=== PATIENT | male | born 1965 | race Caucasian/White ===

== ENCOUNTER 2019-06-01 12:46 | Inpatient (IN) | payer OTHER ==
[2019-06-01] MEDS ORDERED: KETOROLAC TROMETHAMINE 60 MG/2 ML VIAL IM ONE (13:33)
[2019-06-01] MEDS ORDERED: LIDOCAINE 5% TOPICAL PATCH TP ONE (13:33)
[2019-06-01] MEDS ORDERED: DEXAMETHASONE LIQUID 0.5 MG/5 ML 240 ML BULK BOTTLE PO ONE (13:34)
[2019-06-01] MEDS ORDERED: DEXAMETHASONE SOD PHOSPHATE 10 MG/1 ML VIAL ONE (13:38)
[2019-06-01] MEDS ORDERED: LIDOCAINE 5% TOPICAL PATCH ONE (13:38)
[2019-06-01] MEDS ORDERED: KETOROLAC TROMETHAMINE 60 MG/2 ML VIAL ONE (13:38)
--- NOTE | 2019-06-01 14:34 | PDOC ---
History of Present Illness - General Chief Complaint: Back Pain Stated Complaint: LWR BACK PAIN Time Seen by Provider: 06/01/19 13:00 History Source: Patient Exam Limitations: No Limitations Past History - Travel Traveled outside of the country in the last 30 days: No Close contact w/someone who was outside of country & ill: No - Past Medical History Allergies/Adverse Reactions: Allergies Allergy/AdvReac Type Severity Reaction Status Date / Time Penicillins Allergy Verified 06/01/19 12:51 sulfamethoxazole Allergy Verified 06/01/19 12:51 [From Bactrim] trimethoprim [From Bactrim] Allergy Verified 06/01/19 12:51 COPD: No Diabetes: Yes (NIDDM) HTN: Yes Other medical history: chronic back pain - Suicide/Smoking/Psychosocial Hx Smoking History: Never smoked Review of Systems - Review of Systems Able to Perform ROS?: Yes Comments:: 06/01/19 14:31 CONSTITUTIONAL: Absent: fever, chills, diaphoresis, generalized weakness, malaise, loss of appetite GASTROINTESTINAL: Absent: abdominal pain, abdominal distension, nausea, vomiting, diarrhea, constipation, melena, hematochezia GENITOURINARY: Absent: dysuria, frequency, urgency, hesitancy, hematuria, flank pain, genital pain MUSCULOSKELETAL: Present: R sided low back pain Absent: arthralgia, joint swelling SKIN: Absent: rash, itching, pallor NEUROLOGIC: Absent: headache, focal weakness or paresthesias, dizziness, unsteady gait, seizure, mental status changes, bladder or bowel incontinence PSYCHIATRIC: Absent: anxiety, depression, suicidal or homicidal ideation, hallucinations. Is the patient limited Maltese proficient: No *Physical Exam - Vital Signs Last Vital Signs Temp Pulse Resp BP Pulse Ox 98.3 F 88 18 137/81 97 06/01/19 12:47 06/01/19 12:47 06/01/19 12:47 06/01/19 12:47 06/01/19 12:47 - Physical Exam Comments: 06/01/19 14:32 GENERAL: Well developed, well nourished. Awake and alert. No acute distress. HEENT: Normocephalic, atraumatic. PERRLA, EOMI. No conjunctival pallor. Sclera are non- icteric. Moist mucous membranes. Oropharynx is clear. NECK: Supple. Full ROM. No JVD. Carotid pulses 2+ and symmetric, without bruits. No thyromegaly. No lymphadenopathy. MUSCULOSKELETAL TTP of the R paraspinous muscles, L4-S1, with palpable knot consistent with muscle spasm. (+) straight leg raise on the R. R sided 3/5 strength, 5/5 on the L. Decreased sensation over the R medial calf. No bony deformities or tenderness. No CVA tenderness. EXTREMITIES: No cyanosis. No clubbing. No edema. No calf tenderness. SKIN: Warm and dry. Normal capillary refill. No rashes. No jaundice. NEUROLOGICAL: Alert, awake, appropriate. Cranial nerves 2-12 intact. No deficits to light touch and temperature in face, upper extremities and lower extremities. No motor deficits in the in face, upper extremities and lower extremities. Normoreflexic in the upper and lower extremities. Normal speech. Toes are down- going bilaterally. Gait is normal without ataxia. PSYCHIATRIC: Cooperative. Good eye contact. Appropriate mood and affect. ED Treatment Course - Medications Given in the ED: ED Medications Discontinued Medications Generic Name Dose Route Start Last Admin Trade Name Vangie PRN Reason Stop Dose Admin Dexamethasone 10 mg 06/01/19 13:34 06/01/19 13:51 Decadron Liquid - PO 06/01/19 13:35 10 mg ONCE ONE Administration Ketorolac Tromethamine 60 mg 06/01/19 13:33 06/01/19 13:49 Toradol Injection - IM 06/01/19 13:34 60 mg ONCE ONE Administration Lidocaine 1 patch 06/01/19 13:33 06/01/19 13:49 Lidoderm Patch - TP 06/01/19 13:34 1 patch ONCE ONE Administration Oxycodone/Acetaminophen 1 combo 06/01/19 13:34 06/01/19 13:51 Percocet 5/325 - PO 06/01/19 13:35 1 combo ONCE ONE Administration Medical Decision Making - Medical Decision Making 06/01/19 14:32 The patient is a 54-year-old male with past medical history of spinal stenosis/ chronic low back pain last MRI April 2019, who presents to the ER today with a flare of his low back pain. He states it has gotten worse over the last 2 days. He states this problem has been going on for the last 2 months and continually gotten worse. He saw his neurosurgeon on for the pain as well and given tramadol and Percocet to take as outpatient. He states that he is unable to get comfortable or walk short distances due to the pain. He states his right leg feels weak and that the leg feels numb and tingly medially. Denies fevers, chills, saddle anesthesia and bladder bowel incontinence. A/P: Low back pain -Pt with TTP of the R paraspinous muscles, L4-S1, with palpable knot consistent with muscle spasm. (+) straight leg raise on the R. R sided 3/5 strength, 5/5 on the L. Decreased sensation over the R medial calf. -No trauma, or fever. No saddle anesthesia or bladder/bowel incontinence. No CVA tenderness. -Pt with neurological changes; however, patient states that the weakness and numbness is not new. -Toradol, Dexamethasone, percocet and lidocaine patch given without relief of symptoms -Tried contacted Dr. Loyola, pt's neurosurgeon. Number is currently not working -Pt to be transferred to the main ED at this time. Pt still with significant pain despite treatment. -Case discussed with Dr. Guadalupe and NAHUN Ordonez. Pt to go to a hallway bed. *DC/Admit/Observation/Transfer Diagnosis at time of Disposition: Low back pain Qualifiers: Chronicity: acute Back pain laterality: right Sciatica presence: with sciatica Sciatica laterality: sciatica of right side Qualified Code(s): M54.41 - Lumbago with sciatica, right side - Referrals - Patient Instructions - Post Discharge Activity
--- NOTE | 2019-06-01 15:30 | PN ---
Progress Note (short form) - Note Progress Note: 54M w/known history of lumbar intervertebral disc prolapse with associated stenosis, spondylotic radiculopathy & neurogenic claudication now p/w acutely worsened, intractable low back pain and RLE radiculopathy. Pt. seen in outpatient setting last week. Planned conservative, non-surgical management to palliate symptomatology while patient attempts dietary modifications in effort to lose weight. According to ED staff, pt. presented to ED today w/acutely worsened low back pain and RLE radiculopathy, minimal capacity to ambulate, and inability to attend to ADL's. Pt. received Toradol, Dexamethasone, Percocet and topical lidocaine patch w/ little improvement of symptoms; unfit to go home. -Admit patient to my service. -Will re-assess tomorrow; If symptoms aren't improving, will discuss option of surgical intervention. -f/u pre-op labs: CBC, Chem 20, Coags (PT/PTT/INR), T&S x 2, UA. -f/u CXR, EKG. -Pain control: Hold NSAID's, steroids. -DVT PPx: -Mechanical only: DARCY's, SCD's. -WBAT B/L LE. -Care per medical hospitalist: Dr. Bernal. -NPO, IVF at midnight. -Will follow. -Plan discussed w/June Riley PA-C (ED team). Allan Saunders MD (Orthopaedic Surgery).
[2019-06-01] MEDS ORDERED: ONDANSETRON 4 MG/2 ML VIAL IVPUSH PRN (15:52)
[2019-06-01] MEDS ORDERED: oxyCODONE HCL 5 MG TABLET PO PRN (15:52)
--- NOTE | 2019-06-01 16:30 | PDOC ---
History of Present Illness - General Chief Complaint: Back Pain Stated Complaint: LWR BACK PAIN Time Seen by Provider: 06/01/19 13:00 History Source: Patient Exam Limitations: No Limitations - History of Present Illness Initial Comments: 06/01/19 16:53 54yo M with PMH of NIDDM, HTN presenting to ED with complaints of worsening lower back pain. Pt was originally seen in fast track and sent back to the main ed. Patient states that he has had back pain for the past 8m or so but for the past few months it has been getting worse. He endorses electric like pain shooting down his R leg associated with paresthesia in the R foot and difficulty walking. He has pain whether he is sitting, standing or walking but feels as if his R leg is weaker now. He was seen at [facility] for the back pain and MRI done 05/07/19 showed moderate stenosis at the L4/L5 outlet due to disc bulge. Denies injury, headache, neck pain, upper extremity weakness, abdominal pain, n/v/d, chest pain, sob, swelling, rash, syncope. He was being managed outpatient with pain medications and steroid injections but he states the pain returns and is getting worse. He saw Dr. Saunders last and was advised to come to the ED for possible surgery tomorrow. PMD: PMH: see hpi PSH: none Meds: see med rec Allergies: PCN, Bactrim Past History - Past Medical History Allergies/Adverse Reactions: Allergies Allergy/AdvReac Type Severity Reaction Status Date / Time Penicillins Allergy Verified 06/01/19 12:51 sulfamethoxazole Allergy Verified 06/01/19 12:51 [From Bactrim] trimethoprim [From Bactrim] Allergy Verified 06/01/19 12:51 Home Medications: Ambulatory Orders Amlodipine Besylate 10 mg PO HS 06/01/19 Enalapril Maleate [Vasotec -] 10 mg PO BID 06/01/19 Enalapril Maleate [Vasotec] 10 mg PO 06/01/19 Gabapentin 800 mg PO TID 06/01/19 Metformin HCl [Glucophage] 1,000 mg PO BID 06/01/19 Oxycodone HCl 5 mg PO TID PRN 06/01/19 Tramadol HCl 100 mg PO TID 06/01/19 COPD: No Diabetes: Yes (NIDDM) HTN: Yes Other medical history: chronic back pain - Suicide/Smoking/Psychosocial Hx Smoking History: Never smoked Review of Systems - Review of Systems Is the patient limited Korean proficient: No Constitutional: No: Symptoms Reported HEENTM: No: Symptoms Reported Respiratory: No: Symptoms reported Cardiac (ROS): No: Symptoms Reported ABD/GI: No: Symptoms Reported : No: Symptoms Reported Musculoskeletal: Yes: See HPI Integumentary: No: Symptoms Reported Neurological: Yes: See HPI *Physical Exam - Vital Signs Last Vital Signs Temp Pulse Resp BP Pulse Ox 98.3 F 88 18 137/81 97 06/01/19 12:47 06/01/19 12:47 06/01/19 12:47 06/01/19 12:47 06/01/19 12:47 - Physical Exam General Appearance: Yes: Appropriately Dressed, Obese. No: Apparent Distress HEENT: positive: EOMI, [place], Normal ENT Inspection Neck: positive: Trachea midline, Supple Respiratory/Chest: positive: Lungs Clear, Normal Breath Sounds. negative: Crackles, Rales, Wheezing Cardiovascular: positive: Regular Rhythm, Regular Rate, S1, S2. negative: Edema , JVD, Murmur Vascular Pulses: Dorsalis-Pedis (R): 2+, Doralis-Pedis (L): 2+ Gastrointestinal/Abdominal: positive: Normal Bowel Sounds, Soft, Distended. negative: Tender, Guarding, Rebound, Tenderness Musculoskeletal: positive: Other (+SLR R leg). negative: CVA Tenderness, Vertebral Tenderness Extremity: positive: Normal Capillary Refill Integumentary: positive: Normal Color, Dry, Warm Neurologic: positive: primary school principal II-XII NML intact, Fully Oriented, Alert, Normal Mood/ Affect, Normal Response, Motor Strength 03/02 ED Treatment Course - LABORATORY CBC & Chemistry Diagram: 06/01/19 16:49 06/01/19 16:33 - RADIOLOGY Radiology Studies Ordered: Category Date Time Status CHEST X-RAY PORTABLE* [RAD] Stat Radiology 06/01/19 15:40 Taken - Medications Given in the ED: ED Medications Discontinued Medications Generic Name Dose Route Start Last Admin Trade Name Freq PRN Reason Stop Dose Admin Dexamethasone 10 mg 06/01/19 13:34 06/01/19 13:51 Decadron Liquid - PO 06/01/19 13:35 10 mg ONCE ONE Administration Ketorolac Tromethamine 60 mg 06/01/19 13:33 06/01/19 13:49 Toradol Injection - IM 06/01/19 13:34 60 mg ONCE ONE Administration Lidocaine 1 patch 06/01/19 13:33 06/01/19 13:49 Lidoderm Patch - TP 06/01/19 13:34 1 patch ONCE ONE Administration Oxycodone/Acetaminophen 1 combo 06/01/19 13:34 06/01/19 13:51 Percocet 5/325 - PO 06/01/19 13:35 1 combo ONCE ONE Administration Medical Decision Making - Medical Decision Making 06/02/19 00:22 54yo M with PMH of NIDDM, HTN presenting to ED with complaints of worsening lower back pain. Pt was originally seen in fast track and sent back to the main ed. Patient states that he has had back pain for the past 8m or so but for the past few months it has been getting worse. He endorses electric like pain shooting down his R leg associated with paresthesia in the R foot and difficulty walking. He has pain whether he is sitting, standing or walking but feels as if his R leg is weaker now. He was seen at [facility] for the back pain and MRI done 05/07/19 showed moderate stenosis at the L4/L5 outlet due to disc bulge. Denies injury, headache, neck pain, upper extremity weakness, abdominal pain, n/v/d, chest pain, sob, swelling, rash, syncope. He was being managed outpatient with pain medications and steroid injections but he states the pain returns and is getting worse. He saw Dr. Saunders last and was advised to come to the ED for possible surgery tomorrow. Vitals wnl PE: normal sensation, reduced rom of R leg with +SLR, no vertebral tendernes. Pt has lower back pain with sciatica due to disc bulge. Has seen Dr Saunders and Dr Saunders will admit pt for possible surgery tomorrow. will obtain pre op labs and admit to his service. pt does not have any other complaints. *DC/Admit/Observation/Transfer Diagnosis at time of Disposition: Low back pain Qualifiers: Chronicity: acute Back pain laterality: right Sciatica presence: with sciatica Sciatica laterality: sciatica of right side Qualified Code(s): M54.41 - Lumbago with sciatica, right side - Referrals - Patient Instructions - Post Discharge Activity
[2019-06-01] MEDS: LACTATED RINGERS SOLUTION 1,000 ML IV SCH (16:34)
[2019-06-01 17:00] LABS: BASO % 0.5 % (0-2.0); EOS % 0.2 % (0-4.5); HEMATOCRIT 43.3 % (35.4-49); HEMOGLOBIN 14.1 GM/dL (11.7-16.9); LYMPH % 8.3 % (8-40); MCH 28.4 pg (25.7-33.7); MCHC 32.5 g/dl (32.0-35.9); MEAN CELL VOLUME 87.3 fl (80-96); MEAN PLT VOLUME 7.1 fl (7.5-11.1); MONO % 1.4 % (3.8-10.2); NEUT % 89.6 % (42.8-82.8); PLATELET COUNT 449 K/MM3 (134-434); RBC 4.96 M/mm3 (4.00-5.60); RDW 13.2 % (11.9-15.9); WHITE BLOOD COUNT 15.3 K/mm3 (4.0-10.0)
[2019-06-01 17:20] LABS: INR 1.07 (0.83-1.09); PROTHROMBIN TIME (PATIENT) 12.6 SEC (9.7-13.0)
[2019-06-01 17:23] LABS: ACTIVATED PTT 34.5 SECONDS (25.2-36.5)
[2019-06-01 17:24] LABS: ALBUMIN 3.9 g/dl (3.4-5.0); BILIRUBIN,TOTAL 0.2 mg/dL (0.2-1); BLOOD UREA NITROGEN 13.7 mg/dL (7-18); CALCIUM 9.4 mg/dL (8.5-10.1); CREATININE 0.8 mg/dL (0.55-1.3); POTASSIUM 5.1 mmol/L (3.5-5.1); TOT PROT 7.8 g/dl (6.4-8.2)
[2019-06-01 17:33] LABS: PH,URINE 6.5 (5.0-8.0); URINE APPEARANCE CLEAR; URINE BILIRUBIN NEGATIVE (NEGATIVE); URINE COLOR YELLOW; URINE GLUCOSE (UA) NEGATIVE (NEGATIVE); URINE KETONE NEGATIVE (NEGATIVE); URINE LEUK ESTERASE NEGATIVE (NEGATIVE); URINE NITRITE NEGATIVE (NEGATIVE); URINE PROTEIN NEGATIVE (NEGATIVE); URINE UROBILINOGEN 0.2 mg/dL (0.2-1.0)
[2019-06-01] MEDS: oxyCODONE HCL 5 MG TABLET PO PRN (18:05)
--- NOTE | 2019-06-01 18:33 | CONSULT ---
Consult Consult Specialty:: IM Reason for Consultation:: pre-op clearance. post-op medical management - History Source History Provided By: Patient, Family Member Limitations to Obtaining History: No Limitations - Past Medical History Cardio/Vascular: Yes: HTN Endocrine: Yes: Diabetes Mellitus - Smoking History Smoking history: Never smoked Home Medications - Allergies Allergies/Adverse Reactions: Allergies Allergy/AdvReac Type Severity Reaction Status Date / Time Penicillins Allergy Verified 06/01/19 12:51 sulfamethoxazole Allergy Verified 06/01/19 12:51 [From Bactrim] trimethoprim [From Bactrim] Allergy Verified 06/01/19 12:51 - Home Medications Home Medications: Ambulatory Orders Amlodipine Besylate 10 mg PO HS 06/01/19 Enalapril Maleate [Vasotec -] 10 mg PO BID 06/01/19 Enalapril Maleate [Vasotec] 10 mg PO 06/01/19 Gabapentin 800 mg PO TID 06/01/19 Metformin HCl [Glucophage] 1,000 mg PO BID 06/01/19 Oxycodone HCl 5 mg PO TID PRN 06/01/19 Tramadol HCl 100 mg PO TID 06/01/19 Family Disease History - Family Disease History Family History: Unremarkable Review of Systems - Review of Systems Constitutional: reports: Weakness Eyes: reports: No Symptoms HENT: reports: No Symptoms Neck: reports: No Symptoms Cardiovascular: reports: No Symptoms Respiratory: reports: No Symptoms Gastrointestinal: reports: No Symptoms Genitourinary: reports: No Symptoms Musculoskeletal: reports: Back Pain Integumentary: reports: No Symptoms Neurological: reports: No Symptoms Endocrine: reports: No Symptoms Hematology/Lymphatic: reports: No Symptoms Psychiatric: reports: No Symptoms Physical Exam Vital Signs: Vital Signs Temperature 98.3 F 06/01/19 17:12 Pulse Rate 73 06/01/19 17:12 Respiratory Rate 18 06/01/19 12:47 Blood Pressure 135/78 06/01/19 17:12 O2 Sat by Pulse Oximetry (%) 94 L 06/01/19 17:12 Constitutional: Yes: Well Nourished, No Distress, Calm Eyes: Yes: WNL HENT: Yes: WNL Neck: Yes: WNL Cardiovascular: Yes: WNL Respiratory: Yes: WNL Gastrointestinal: Yes: Abdomen, Obese, Distention Renal/: Yes: WNL Musculoskeletal: Yes: Back Pain Extremities: Yes: WNL Edema: No Peripheral Pulses WNL: Yes Neurological: Yes: WNL ...Motor Strength: WNL Psychiatric: Yes: WNL Labs: CBC, BMP 06/01/19 16:49 06/01/19 16:33 Assessment/Plan -54-year-old male with past medical history of spinal stenosis/chronic low back pain last MRI April 2019, came in with a flare of his low back pain which got a lot worse over the last 2 days. He states this problem has been going on for the last 8 months and continually gotten worse. He saw his othopedist on 05/29/19 for similar symptoms and was prescribed tramadol and percocet with minimal relief of his symptoms. He reports that he is unable to ambulate even a short distance due to the pain. describes pain as 10/10, radiating down to his legs, and interferes with his quality of life. denies chest pain, palpitations, nausea, vomiting, diarrhea. will go to OR tomorrow with Dr Saunders. cont pain management. can have dinner. NPO past midnight. -uncontrolled type 2 DM: RISS. hold PO meds till PO food intake is resumed post- op -HTN: took his meds for the day. will reassess post-op -GI, DVT prophylaxis. -leucocytosis, reactive thrmbocytosis: afebrile. etiology unclear. will monitor. will get IV antibiotics babak-operatively. -morbid obesity: weight loss and healthier lifestyle advised. -assessment and plan discussed at length with pt and at bedside. case discussed with Dr Saunders labs and meds reviewed Pt is cleared with moderate CV risk for OR calls answered throughout the day. 60 min
[2019-06-01] MEDS: LIDOCAINE PATCH REMOVAL MC SCH (21:17)
[2019-06-01] MEDS: INSULIN SLIDING SCALE (NOVOLOG) 1 VIAL SQ SCH (21:18)
[2019-06-02] MEDS: oxyCODONE HCL 5 MG TABLET PO PRN ×2 (00:38→08:46)
[2019-06-02] MEDS: LACTATED RINGERS SOLUTION 1,000 ML IV SCH ×3 (04:18→22:00)
[2019-06-02] MEDS: INSULIN SLIDING SCALE (NOVOLOG) 1 VIAL SQ SCH ×3 (06:13→16:58)
[2019-06-02 09:25] LABS: BASO % 0.9 % (0-2.0); EOS % 0.1 % (0-4.5); HEMATOCRIT 40.9 % (35.4-49); HEMOGLOBIN 13.5 GM/dL (11.7-16.9); LYMPH % 11.2 % (8-40); MCH 28.5 pg (25.7-33.7); MCHC 32.9 g/dl (32.0-35.9); MEAN CELL VOLUME 86.5 fl (80-96); MEAN PLT VOLUME 7.5 fl (7.5-11.1); MONO % 5.2 % (3.8-10.2); NEUT % 82.6 % (42.8-82.8); PLATELET COUNT 417 K/MM3 (134-434); RBC 4.74 M/mm3 (4.00-5.60); RDW 12.8 % (11.9-15.9); WHITE BLOOD COUNT 17.5 K/mm3 (4.0-10.0)
[2019-06-02] MEDS ORDERED: MORPHINE SULFATE 2 MG/ML VIAL IVPUSH ONE (13:15)
[2019-06-02] MEDS ORDERED: BUPIVACAINE LIPOSOME/PF (EXPAREL) 266 MG/20 ML VIAL ONE ×2 (16:54→17:03)
[2019-06-02] MEDS ORDERED: BUPIVACAINE HCL/PF 0.25% (2.5MG/ML) 10 ML VIAL ONE (16:54)
[2019-06-02] MEDS ORDERED: THROMBIN (BOVINE) 5,000 UNIT VIAL TP ONE (16:55)
[2019-06-02] MEDS ORDERED: BUPIVACAINE HCL/PF 0.5% (5MG/ML) 10 ML VIAL ONE (17:03)
[2019-06-02] MEDS ORDERED: fentaNYL CITRATE 250 MCG/5 ML VIAL ONE (17:06)
[2019-06-02] MEDS ORDERED: MIDAZOLAM HCL 2 MG/2 ML SINGLE DOSE VIAL ONE ×2 (17:07)
[2019-06-02] MEDS ORDERED: PROPOFOL 20 ML ONE ×4 (17:10→17:17)
--- NOTE | 2019-06-02 17:13 | PN ---
Progress Note, Physician Chief Complaint: back pain, intractable - Current Medication List Current Medications: Active Medications Lactated Ringer's (Lactated Ringers Solution) 1,000 mls @ 125 mls/hr IV [facility] Last Admin: 06/02/19 17:06 Dose: Not Given Insulin Aspart (Novolog Vial Sliding Scale -) 1 vial SQ [facility]; Protocol Last Admin: 06/02/19 16:58 Dose: Not Given Miscellaneous (Lidoderm Patch Removal) 1 each MC DAILY@2200 [place] Last Admin: 06/01/19 21:17 Dose: 1 each Ondansetron HCl (Zofran Injection) 4 mg IVPUSH Q6H PRN PRN Reason: NAUSEA AND/OR VOMITING Oxycodone HCl (Roxicodone -) 10 mg PO Q6H PRN PRN Reason: PAIN LEVEL 6-10 Last Admin: 06/02/19 08:46 Dose: 10 mg Oxycodone HCl (Roxicodone -) 5 mg PO Q4H PRN PRN Reason: PAIN LEVEL 1-5 Last Admin: 06/01/19 22:39 Dose: 5 mg - Objective Vital Signs: Vital Signs Temperature 98.2 F 06/02/19 15:00 Pulse Rate 79 06/02/19 15:00 Respiratory Rate 20 06/02/19 15:00 Blood Pressure 142/85 06/02/19 15:00 O2 Sat by Pulse Oximetry (%) 98 06/02/19 09:00 Constitutional: Yes: No Distress, Anxious Eyes: Yes: WNL HENT: Yes: WNL Neck: Yes: WNL Cardiovascular: Yes: WNL Respiratory: Yes: WNL Gastrointestinal: Yes: WNL Genitourinary: Yes: WNL Musculoskeletal: Yes: Back Pain Extremities: Yes: WNL Edema: No Peripheral Pulses WNL: Yes Integumentary: Yes: WNL Neurological: Yes: WNL Psychiatric: Yes: WNL Labs: CBC, BMP 06/02/19 08:30 06/01/19 16:33 INR, PTT INR 1.07 (0.83-1.09) 06/01/19 16:49 Assessment/Plan -54-year-old male with past medical history of spinal stenosis/chronic low back pain last MRI April 2019, came in with a flare of his low back pain which got a lot worse over the last 2 days. He states this problem has been going on for the last 8 months and continually gotten worse. He saw his othopedist on 05/29/19 for similar symptoms and was prescribed tramadol and percocet with minimal relief of his symptoms. He reports that he is unable to ambulate even a short distance due to the pain. describes pain as 10/10, radiating down to his legs, and interferes with his quality of life. denies chest pain, palpitations, nausea, vomiting, diarrhea. will go to OR today with Dr Saunders. cont pain management. NPO. -GI, DVT prophylaxis. -leucocytosis, reactive thrmbocytosis: afebrile. etiology unclear. will monitor. will get IV antibiotics babak-operatively. family and pt comfortable with surgery given current parameters. they do not with to be consulted by ID at this time for fear of postponement of surgery. -morbid obesity: weight loss and healthier lifestyle advised. -assessment and plan discussed at length with pt and at bedside. case discussed with Dr Saunders labs and meds reviewed Pt is cleared with moderate CV risk for OR calls answered throughout the day. 45 min
[2019-06-02] MEDS ORDERED: ROCURONIUM BROMIDE 50 MG/5 ML SYRINGE ONE ×2 (17:15→19:06)
[2019-06-02] MEDS ORDERED: SUCCINYLCHOLINE CHLORIDE 200 MG/10 ML SYRINGE ONE (17:15)
--- NOTE | 2019-06-02 17:15 | PN ---
Progress Note (short form) - Note Progress Note: 54M w/known history of L4-L5 intervertebral disc prolapse with associated stenosis, spondylotic radiculopathy & neurogenic claudication now p/w acutely worsened, intractable low back pain, RLE radiculopathy, and progressive weakness. Pain well controlled. No acute events overnight. Pt. denies overnight history of headaches, chest pain, shortness of breath, nausea, vomiting, chills, & sweats. (+) Voiding; (+) Flatus; (-) BM. NPO, IVF. Unable to walk due to severe low back pain and RLE radiculopathy. All labs and vitals reviewed. PE: AAO x 3, NAD. L-Spine: Skin C/D/I. RLE M: L2-L4, S1 5/5; L5 4/5. RLE S: L2-L4 2/2; L5-S1 1/2. LLE M: L2-S1 5/5. LLE S: L2-S1 2/2. 54F doing well s/p L4-S1 laminectomies; L3 partial laminectomy; L4-L5, & L5-S1 PLIF, L4-S1 PISF POD #10. -NPO, IVF. -Risks, benefits, and alternatives of non-surgical VS surgical management were discussed with and understood by the patient with his family. The patient wishes to pursue a surgical solution to his symptomatology and lumbar spine pathology. -A long conversation was held with the patient and his family, in the presence of Dr. Bernal (medical hospitalist) about his elevated WBC (most likely secondary to IV Decadron received in the ED), neutrophil left shift, and other lab derangements. Benefits of surgical intervention outweigh medical risks. The patient and his family wish to proceed with surgical intervention. -H&P reviewed. -Will proceed with L4-L5 PLIF & posterolateral instrumented fusion. Allan Saunders MD (Orthopaedic Surgery).
[2019-06-02] MEDS ORDERED: ONDANSETRON 4 MG/2 ML VIAL ONE ×2 (17:17→20:57)
[2019-06-02] MEDS ORDERED: KETOROLAC TROMETHAMINE 30 MG/1 ML VIAL ONE (17:17)
[2019-06-02] MEDS ORDERED: DEXAMETHASONE SOD PHOSPHATE 4 MG/1 ML VIAL ONE ×2 (17:17→17:18)
[2019-06-02] MEDS ORDERED: LIDOCAINE HCL/PF 2% SDV 5ML VIAL ONE ×2 (17:17→18:46)
--- NOTE | 2019-06-02 17:30 | PN ---
Progress Note (short form) - Note Progress Note: 54M w/known history of L4-L5 intervertebral disc prolapse with associated stenosis, spondylotic radiculopathy & neurogenic claudication now p/w acutely worsened, intractable low back pain, RLE radiculopathy, and progressive weakness. Pain well controlled. No acute events overnight. Pt. denies overnight history of headaches, chest pain, shortness of breath, nausea, vomiting, chills, & sweats. (+) Voiding; (+) Flatus; (-) BM. NPO, IVF. Unable to walk due to severe low back pain and RLE radiculopathy. All labs and vitals reviewed. PE: AAO x 3, NAD. L-Spine: Skin C/D/I. RLE M: L2-L4, S1 5/5; L5 4/5. RLE S: L2-L4 2/2; L5-S1 1/2. LLE M: L2-S1 5/5. LLE S: L2-S1 2/2. 54M p/w L4-L5 intervertebral disc prolapse with associated stenosis, spondylotic radiculopathy & neurogenic claudication now p/w acutely worsened, intractable low back pain, RLE radiculopathy, and progressive weakness. -NPO, IVF. -Risks, benefits, and alternatives of non-surgical VS surgical management were discussed with and understood by the patient with his family. The patient wishes to pursue a surgical solution to his symptomatology and lumbar spine pathology. -A long conversation was held with the patient and his family, in the presence of Dr. Bernal (medical hospitalist) about his elevated WBC (most likely secondary to IV Decadron received in the ED), neutrophil left shift, and other lab derangements. Benefits of surgical intervention outweigh medical risks. The patient and his family wish to proceed with surgical intervention. -H&P reviewed. -Will proceed with L4-L5 PLIF & posterolateral instrumented fusion. Allan Saunders MD (Orthopaedic Surgery).
[2019-06-02] MEDS ORDERED: VANCOMYCIN 1,000 MG VIAL (RESTRICTED TO ID ONLY) ONE (18:16)
[2019-06-02] MEDS ORDERED: SODIUM CHLORIDE 0.9% P/F 10 ML VIAL IJ ONE ×2 (18:16→18:17)
[2019-06-02] MEDS ORDERED: TRANEXAMIC ACID 1000 MG/10 ML VIAL ONE ×2 (18:16→21:04)
[2019-06-02] MEDS ORDERED: ceFAZolin SODIUM 1 GM VIAL IVPB ONE ×2 (18:19→21:15)
[2019-06-02] MEDS ORDERED: VANCOMYCIN 1,000 MG VIAL (RESTRICTED TO ID ONLY) IVPB ONE (18:22)
[2019-06-02] MEDS ORDERED: METOPROLOL TARTRATE 5 MG/5 ML VIAL ONE (18:33)
[2019-06-02] MEDS ORDERED: hydrALAZINE HCL 20 MG/ML VIAL ONE (18:46)
[2019-06-02] MEDS ORDERED: KETAMINE HCL 200 MG/20 ML VIAL ONE (19:04)
[2019-06-02] MEDS ORDERED: HEPARIN NA (PORCINE) 5,000 UNITS/ML 1ML VIAL ONE (19:05)
[2019-06-02] MEDS ORDERED: ceFAZolin SODIUM 1 GM VIAL ONE (21:05)
[2019-06-02] MEDS ORDERED: NEOSTIGMINE METHYLSULFATE 0.5 MG/1 ML - 10 ML MDV ONE (21:08)
[2019-06-02] MEDS ORDERED: GLYCOPYRROLATE 0.2 MG/1 ML VIAL ONE (21:08)
[2019-06-02] MEDS ORDERED: BENZOIN TINCTURE SWABSTICK TP ONE (21:26)
[2019-06-02] MEDS ORDERED: HYDROmorphone HCl 2 MG/ML VIAL ONE (21:40)
--- NOTE | 2019-06-02 21:46 | PN ---
Progress Note (short form) - Note Progress Note: 54M POD #0 s/p: 1. L4 bilateral laminectomies & inferior facetectomies 2. L5 superior facetectomies 2. L4-L5 posterior instrumentation 3. L4-L5 discectomy 4. L4-L5 posterior lumbar interbody fusion 5. L4-L5 insertion biomechanical device 6. L4-L5 posterolateral arthrodesis 7. Bone allograft 8. Bone autograft 9. Bone marrow aspiration & concentrate autograft 10. Complex wound closure (15cm) 11. Durotomy repair -Admit to ICU post-op. -Pain control: patient received pre-op TLIP block w/Exparel; OK to use PRODUCT SUPPORT MANAGER if needed; transition to oral analgesia post-op; NO NSAID's. -DVT PPx: -Mechanical only: DARCY's, SCD's. -Chemical: None. -Incentive spirometry q15 min. -NPO until flatus. -Stephens care; d/c when ambulating. -Post-op Ancef q6h x 3 doses; Vancomycin 1g 12 hrs. post-op. -PT/OT/Rehab, OOB. -WBAT B/L LE. -No bending, lifting (>5 lbs), or twisting for 9-12 months. -Care per ICU & medical hospitalist Dr. Bernal. -Discharge planning: [facility]; call for appointment; . -Will follow. Allan Saunders MD (Orthopaedic Surgery).
--- NOTE | 2019-06-02 21:46 | OP ---
Operative Note - Note: Operative Date: 06/02/19 Pre-Operative Diagnosis: 1. L4-L5 disc prolapse with RLE radiculopathy & weakness. 2. Segmental instability L4-L5. Severity of illness: 4. Operation: 1. L4 bilateral laminectomies & inferior facetectomies. 2. L5 superior facetectomies. 2. L4-L5 posterior instrumentation. 3. L4-L5 discectomy. 4. L4-L5 posterior lumbar interbody fusion. 5. L4-L5 insertion biomechanical device. 6. L4-L5 posterolateral arthrodesis. 7. Bone allograft. 8. Bone autograft. 9. Bone marrow aspiration & concentrate autograft. 10. Complex wound closure (15cm). 11. Durotomy repair Findings: Sequestrated L4-L5 disc fragment with large disc prolapse. Implants: Cage: RTI Fortilink Tetrafuse [id number]. Screws: Precision Spine 6.5x40mm x 4. Rods: 35mm x 2. Post-Operative Diagnosis: Same as Pre-op Surgeon: Allan Saunders Superintendent Sales: Zane Saunders Anesthesiologist/CAREER TECHNICAL COUNSELOR: Raman Watson Anesthesia: General, Local (TLIP) Specimens Removed: L4-L5 disc Estimated Blood Loss (mls): 250 Fluid Volume Replaced (mls): 1,300 Operative Report Dictated: Yes
[2019-06-02] MEDS ORDERED: ONDANSETRON 4 MG/2 ML VIAL IVPUSH PRN ×2 (21:52→22:09)
[2019-06-02] MEDS ORDERED: ACETAMINOPHEN 1000 MG/100 ML VIAL (NON FORMULARY) IVPB SCH (22:00)
[2019-06-02] MEDS ORDERED: ENALAPRIL MALEATE 10 MG TABLET (FP) PO SCH (22:00)
[2019-06-02] MEDS ORDERED: CHLORHEXIDINE GLUCONATE 4% CLEANSER FOR DECOLONIZATION TP SCH (22:00)
[2019-06-02] MEDS ORDERED: LACTATED RINGERS SOLUTION 1,000 ML IV SCH (22:00)
[2019-06-02] MEDS ORDERED: amLODIPine BESYLATE 10 MG TABLET (FP) PO SCH (22:00)
[2019-06-02] MEDS ORDERED: HYDROmorphone *PCA* 10MG/50ML DISP.SYRIN ONE (22:07)
[2019-06-02] MEDS: ACETAMINOPHEN 1000 MG/100 ML VIAL (NON FORMULARY) IVPB SCH (22:08)
[2019-06-02] MEDS ORDERED: ACETAMINOPHEN 1000 MG/100 ML VIAL (NON FORMULARY) IVPB ONE (22:08)
[2019-06-02] MEDS: HYDROmorphone *PCA* 10MG/50ML DISP.SYRIN PCA SCH (22:19)
[2019-06-02] MEDS ORDERED: PHENYLEPHRINE HCL 10 MG/1 ML SINGLE DOSE VIAL ONE (22:31)
[2019-06-02] MEDS ORDERED: PROMETHAZINE HCL 25 MG/1 ML VIAL IVPUSH PRN (22:36)
[2019-06-02] MEDS ORDERED: CEFAZOLIN 2 GM/D5W 2 GM/50 ML ML IVPB SCH (22:45)
[2019-06-03] MEDS: MUPIROCIN 2% TOPICAL OINTMENT FOR DECOLONIZATION NS SCH ×2 (00:07→09:04)
[2019-06-03] MEDS: LACTATED RINGERS SOLUTION 1,000 ML IV SCH ×2 (00:08→17:09)
--- NOTE | 2019-06-03 00:10 | CONSULT ---
Consultation: REQUESTING PROVIDER: Dr. Allan Saunders CONSULT REQUEST: We have been asked to medically evaluate this patient for continued ICU monitoring s/p spinal surgery. HISTORY OF PRESENT ILLNESS: Raghavendra Reddy is a 54 year old male with a past medical history of lumbar intervertebral disc prolapse with associated stenosis, spondylotic radiculopathy , neurogenic claudication, hypertension, DM, who presented to the ED after failing conservative management of his lumbar back pain. Patient had been getting toradol, dexamethasone, and percocet along with lifestyle changes (wt loss), however over the last 8 months had been progressively having more back pain and difficulty ambulating and completing his ADLs. Patient arrived in the ED, discussed options with Dr. Saunders and proceeded with surgery completed today. In the OR patient underwent L4 bilateral laminectomies & inferior facetectomies, L5 superior facetectomies, L4-L5 posterior instrumentation, L4- L5 discectomy, L4-L5 posterior lumbar interbody fusion, L4-L5 insertion biomechanical device, L4-L5 posterolateral arthrodesis, Bone allograft, Bone autograft, Bone marrow aspiration & concentrate autograft, Complex wound closure (15cm), and durotomy repair. Patient arrived in the ICU. States that he continues to have back pain and was asking about pain medication. 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 Denied chest pain, shortness of breath, abd pain, n/ v/c/d, dizziness, lightheadedness, fever, chills, numbness, tingling, weakness, visual changes. REVIEW OF SYSTEMS: CONSTITUTIONAL: Absent: fever, chills, diaphoresis, generalized weakness, malaise, loss of appetite, weight change HEENT: Absent: rhinorrhea, nasal congestion, throat pain, throat swelling, difficulty swallowing, mouth swelling, ear pain, eye pain, visual changes CARDIOVASCULAR: Absent: chest pain, syncope, palpitations, irregular heart rate, lightheadedness , peripheral edema RESPIRATORY: Absent: cough, shortness of breath, dyspnea with exertion, orthopnea, wheezing, stridor, hemoptysis GASTROINTESTINAL: Absent: abdominal pain, abdominal distension, nausea, vomiting, diarrhea, constipation, GENITOURINARY: Absent: dysuria, frequency, urgency, hesitancy, hematuria, flank pain, genital pain MUSCULOSKELETAL: back pain Absent: myalgia, arthralgia, joint swelling, SKIN: Absent: rash, itching, pallor HEMATOLOGIC/IMMUNOLOGIC: Absent: easy bleeding, easy bruising, lymphadenopathy, frequent infections ENDOCRINE: Absent: unexplained weight gain, unexplained weight loss, heat intolerance, cold intolerance NEUROLOGIC: Absent: headache, focal weakness or paresthesias, dizziness, unsteady gait, seizure, mental status changes, bladder or bowel incontinence PSYCHIATRIC: Absent: anxiety, depression, suicidal or homicidal ideation, hallucinations. PHYSICAL EXAMINATION Vital Signs - 24 hr 06/02/19 06/02/19 06/02/19 02:17 07:00 09:00 Temperature 98.5 F 97.9 F Pulse Rate 84 83 Respiratory 20 20 Rate Blood Pressure 132/77 129/83 O2 Sat by Pulse 98 Oximetry (%) 06/02/19 06/02/19 06/02/19 15:00 21:50 22:15 Temperature 98.2 F 98.2 F Pulse Rate 79 98 H 96 H Respiratory 20 18 18 Rate Blood Pressure 142/85 148/78 140/80 O2 Sat by Pulse 97 95 Oximetry (%) 06/02/19 06/02/19 06/02/19 22:19 22:30 22:45 Temperature Pulse Rate 96 H 95 H 92 H Respiratory 18 14 16 Rate Blood Pressure 140/80 136/75 144/70 O2 Sat by Pulse 95 95 94 L Oximetry (%) 06/02/19 06/02/19 06/02/19 23:00 23:15 23:30 Temperature Pulse Rate 86 86 85 Respiratory 18 18 19 Rate Blood Pressure 115/63 128/64 122/69 O2 Sat by Pulse 95 94 L 94 L Oximetry (%) GENERAL: Awake, alert, and fully oriented, in no acute distress. Complained of back pain. HEAD: Normal with no signs of trauma. EYES: Pupils equal, round and reactive to light, extraocular movements intact, sclera anicteric, conjunctiva clear. EARS, NOSE, THROAT: Oropharynx clear without exudates. Moist mucous membranes. NECK: Normal range of motion, supple without lymphadenopathy, JVD, or masses. LUNGS: Breath sounds equal, clear to auscultation bilaterally. No wheezes, and no crackles. No accessory muscle use. HEART: Regular rate and rhythm, normal S1 and S2 without murmur, rub. ABDOMEN: Soft, nontender, not distended, normoactive bowel sounds, no guarding, no rebound, no masses. MUSCULOSKELETAL: Normal range of motion at all joints. No bony deformities or tenderness. No CVA tenderness. UPPER EXTREMITIES: 2+ pulses, warm, well-perfused. No cyanosis. No clubbing. Cap refill <2 seconds. No peripheral edema. LOWER EXTREMITIES: 2+ pulses, warm, well-perfused. No calf tenderness. No peripheral edema. NEUROLOGICAL: Cranial nerves II-XII intact. Normal speech. 5/5 muscle strength throughout upper and lower extremities bilaterally. Reduced movement in hip flexion and extension secondary to pain from surgery. Sensation intact throughout. PSYCHIATRIC: Cooperative. Good eye contact. Appropriate mood and affect. SKIN: Warm, dry, normal turgor, no rashes or lesions noted. Laboratory Results - last 24 hr 06/02/19 06/02/19 06/02/19 06:10 08:30 08:30 WBC 17.5 H RBC 4.74 Hgb 13.5 Hct 40.9 MCV 86.5 MCH 28.5 MCHC 32.9 RDW 12.8 Plt Count 417 MPV 7.5 Absolute Neuts (auto) 14.4 H Neutrophils % 82.6 Lymphocytes % 11.2 D Monocytes % 5.2 D Eosinophils % 0.1 Basophils % 0.9 Nucleated RBC % 0 POC Glucometer 172 Blood Type A POSITIVE Antibody Screen Negative 06/02/19 11:51 WBC RBC Hgb Hct MCV MCH MCHC RDW Plt Count MPV Absolute Neuts (auto) Neutrophils % Lymphocytes % Monocytes % Eosinophils % Basophils % Nucleated RBC % POC Glucometer 124 Blood Type Antibody Screen Active Medications Generic Name Dose Route Start Last Admin Trade Name Freq PRN Reason Stop Dose Admin Acetaminophen 1,000 mg 06/03/19 06:00 06/02/19 22:08 Ofirmev Injection - IVPB 06/03/19 14:01 1,000 mg Q8H SALINA Administration Amlodipine Besylate 10 mg 06/03/19 22:00 Norvasc - PO HS SALINA Chlorhexidine Gluconate 1 applic 06/02/19 22:00 Hibiclens For Decolonization - TP HS SALINA Enalapril Maleate 10 mg 06/03/19 10:00 Vasotec - PO BID SALINA Hydromorphone HCl 10 mg 06/02/19 22:15 06/02/19 22:19 Hydromorphone 10 Mg/50 Ml-Ns BELLING MACHINE OPERATOR 06/09/19 22:10 10 mg BELLING MACHINE OPERATOR SALINA Administration Protocol Lactated Ringer's 1,000 mls @ 75 mls/hr 06/02/19 22:15 Lactated Ringers Solution IV ASDIR SALINA Vancomycin HCl 1,000 mg in 250 mls @ 166.667 mls/hr 06/03/19 06:00 Vancomycin (Pre-Docked) IVPB 06/03/19 07:29 ONCE ONE Protocol Cefazolin Sodium/Dextrose 2 gm in 50 mls @ 100 mls/hr 06/03/19 02:00 Ancef 2 Gm Premixed Ivpb - IVPB 06/03/19 14:29 Q6H SALINA Insulin Aspart 1 vial 06/03/19 07:00 Novolog Vial Sliding Scale - SQ ACHS SALINA Protocol Metformin HCl 1,000 mg 06/03/19 07:00 Glucophage - PO BIDAC SALINA Mupirocin 1 applic 06/02/19 22:00 Bactroban Ointment (For Decolonization) - NS 06/07/19 21:59 BID SALINA Promethazine HCl 12.5 mg 06/02/19 22:36 Phenergan Injection - IVPUSH Q6H PRN NAUSEA AND/OR VOMITING ASSESSMENT/PLAN: Raghavendra Reddy is a 54 year old male with a past medical history of lumbar intervertebral disc prolapse with associated stenosis, spondylotic radiculopathy , neurogenic claudication, hypertension, DM admitted to the ICU for continued monitoring s/p orthopedic back surgery with Dr. Saunders. NEUROLOGIC - alert and oriented - neurochecks q shift - pain management as per anesthesia - BELLING MACHINE OPERATOR pump - IV Tylenol - NO NSAIDS CARDIOLOGY - continue home amlodipine 10mg daily - continue home enalapril 10mg bid RESPIRATORY - NC as needed - encourage incentive spirometry RENAL - no acute issues GASTROINTESTINAL - promethazine 12.5mg q6h IV push as needed for nausea GENITOURINARY - byrnes in - may dc when starting to ambulate INFECTIOUS DISEASE - continue ancef x3 - continue vancomycin x1 - elevated WBC, likely reactive - afebrile ENDOCRINE - continue home metformin 1000mg bid - BGM ACHS - ISS HEMATOLOGY - continue to monitor Hgb counts s/p surgery - 250cc EBL - 1300 fluid replaced in OR - morning labs to trend counts - elevated WBC, likely reactive, continue to monitor MUSCULOSKELETAL - continue to monitor neuro exam - PT/OT/rehab - early ambulation - no bending/lifting/twisting for 9 months - f/u outpatient with Dr. Saunders s/p discharge PSYCHIATRY - no acute issues F/E/N - LR at 75cc - continue to monitor electrolytes and replete as necessary - NPO until flatus LINES - R FA inserted 06/01 PROPHYLAXIS - SCDs - no chemical prophylaxis CODE - full code DISPO - continue to monitor in ICU Thank you for this consultative opportunity. JESUSITA MILLER DO - PGY-1 INTERNAL MEDICINE Visit type - Emergency Visit Emergency Visit: No - New Patient This patient is new to me today: Yes Date on this admission: 06/03/19 - Critical Care Critical Care patient: Yes Total Critical Care Time (in minutes): 35 Critical Care Statement: The care of this patient involved high complexity decision making to prevent further life threatening deterioration of the patient 's condition and/or to evaluate & treat vital organ system(s) failure or risk of failure.
[2019-06-03] MEDS: CEFAZOLIN 2 GM/D5W 2 GM/50 ML ML IVPB SCH ×3 (03:05→13:45)
[2019-06-03] MEDS: ACETAMINOPHEN 1000 MG/100 ML VIAL (NON FORMULARY) IVPB SCH ×2 (05:28→13:44)
[2019-06-03] MEDS ORDERED: VANCOMYCIN 1 GRAM (PRE-DOCKED) 1,000 MG/250 ML BAG IVPB ONE (06:00)
[2019-06-03] MEDS: INSULIN SLIDING SCALE (NOVOLOG) 1 VIAL SQ SCH ×5 (06:10→22:08)
[2019-06-03 06:59] LABS: HEMATOCRIT 37.8 % (35.4-49); HEMOGLOBIN 12.5 GM/dL (11.7-16.9); MCH 28.3 pg (25.7-33.7); MCHC 33.1 g/dl (32.0-35.9); MEAN CELL VOLUME 85.4 fl (80-96); MEAN PLT VOLUME 7.5 fl (7.5-11.1); PLATELET COUNT 420 K/MM3 (134-434); RBC 4.42 M/mm3 (4.00-5.60); RDW 13.2 % (11.9-15.9); WHITE BLOOD COUNT 16.2 K/mm3 (4.0-10.0)
[2019-06-03] MEDS ORDERED: metFORMIN HCL 500 MG TABLET (FP) PO SCH ×2 (07:00)
[2019-06-03 07:16] LABS: BLOOD UREA NITROGEN 13.4 mg/dL (7-18); CREATININE 0.8 mg/dL (0.55-1.3); POTASSIUM 4.7 mmol/L (3.5-5.1)
--- NOTE | 2019-06-03 09:00 | OP ---
Date of Operation: 06/02/2019 Pre-Operative Diagnosis: 1. L4-L5 intervertebral disc disorder/herniation with right lower extremity radiculopathy. 2. L4-L5 spinal stenosis with neurogenic claudication. 3. L4-L5 segmental instability. 4. Acute neurological decline, progressive motor weakness, fall risk. Post-Operative Diagnosis: 1. L4-L5 intervertebral disc disorder/herniation with right lower extremity radiculopathy. 2. L4-L5 spinal stenosis with neurogenic claudication. 3. L4-L5 segmental instability. 4. Acute neurological decline, progressive motor weakness, fall risk. 5. Incidental durotomy. Procedure Performed: 1. L3, L5 partial bilateral laminectomies and facetectomies. (06451-68, 45437 -50) 2. L4-L5 discectomy, posterolateral arthrodesis & posterior lumbar interbody fusion (PLIF). (05347) 3. L4-L5 insertion biomechanical device. (16726) 4. L4-L5 posterior instrumentation. (15374-74-01) 5. Morselized bone autograft. (48604) 6. Morselized bone allograft. (41111) 7. Bone marrow aspiration for bone grafting. (01825) 8. Complex wound closure, 4 layers, 20cm. (03046 x 3) 9. Durotomy repair. Modifier 22: Increased case difficulty and time due to patient obesity, wound depth, and adherence of herniated disc fragment to thecal sac. Surgeon: Allan Saunders M.D. Youth Ministry Director: aZne Saunders M.D. Anesthesiologist: Raman Watson M.D. Anesthesia: General, Local (TLIP block). Position: Prone. Incision: Midline. Specimens Removed: L4-L5 disc. Drains: None. Estimated Blood Loss: 250cc. Intravenous Fluid: 1.3L crystalloid. Transfusions: None. Complications: None. Bacteriology: None. Closure: No. 1 Vicryl, 2-0 Biosyn absorbable sutures. Indications: The patient was indicated for the above listed surgical procedure due to acute neurological and functional decline that limits his mobility and capacity to independently perform activities of daily living. The patient was identified in the holding area by his armband. A long discussion was held with the patient in the presence of his regarding the risks , benefits and alternatives of the above-named procedure. The risks include, but are not limited to: pain, bleeding, infection, damage to surrounding structures (including nerves, blood vessels, skin, ligaments, tendons, and bone), nerve palsy, weakness, limp, wound complications, pseudarthrosis, failure of fusion, failure of hardware/implants/reduction, durotomy, need for further surgery, blood clots, myocardial infarction, pulmonary embolism, cerebrovascular event, anesthesia complications, neurological injury, loss of function, and . Benefits as mentioned above. Alternatives include no surgery. All questions were answered. The patient and his/her family understood and agreed to the procedure. Informed consent was obtained, witnessed and verified by hospital nursing staff. The patients lumbar spine was marked. The patient was then assessed by the anesthesia team who proceeded to administer a bilateral imaging-guided TLIP block to facilitate post-operative pain management. The patient was then taken to the operating room. Procedure: The patient was brought into the operating room. Consent and the operative site were again verified with the patient, the nursing team, the surgical team, and the anesthesiology team. Anesthesia, IV antibiotics, and TXA were then administered without complication. A time out was done, led by me the attending surgeon. An indwelling Stephens catheter was successfully inserted by the nursing team. The patient was then safely placed in a prone position with all bony prominences well-padded on a [facility] OSI spine table with strict attention paid to maintenance of sagittal vertical alignment. Retroversion of the pelvis was avoided by ensuring that the hips were extended. This also ensured appropriate lumbar lordosis. The arms were placed on well-padded arm boards and maintained with standard forward flexion, abduction, and external rotation of the shoulders , and flexion of the elbows. Special attention was given to the safe positioning of the cervical spine. The patients eyes, breasts, and belly were all free. The table was placed in 6 degrees of reverse Trendelenburg position to avoid ophthalmic vein congestion. A C-arm fluoroscopy unit was positioned perpendicularly to the table and maintained at the level of the upper thoracic spine, except when needed. The skin was prepped in standard, sterile fashion using betadine prep & scrub, wiped off with alcohol, and DuraPrep applied. Standard window draping was utilized, and this included draping of the C-arm. All pre-operative imaging was available throughout the case for intraoperative evaluation. Localization and verification of the intended surgical levels was confirmed with a lateral fluoroscopic x-ray. A time-out was repeated, and the case began. A midline skin incision was performed from the tip of the spinous process of L2 to the tip of the spinous process of S1. Using electrocautery, the dissection was carried down through subcutaneous fat and then through the midline of the lumbodorsal fascia down to the tips of the spinous processes. A subperiosteal dissection was performed using a combination of unipolar electrocautery and Jones elevation. This was carried down the spinous process, over the laminae, across the facet joints, and out over the tips of the transverse processes from L4 to L5. In this dissection, the capsules of the L3-L4 & L5-S1 joints were preserved bilaterally. The L4-L5 joint capsules were pathologically hypertrophic. They were ablated using electrocautery and resected with rongeurs. The posterolateral dissection was performed with attention to hemostatis by utilizing both unipolar as well as bipolar electrocautery. The posterolateral space was packed with Ray-Tara sponges. A Caleb clamp was placed over an exposed interspinous space and, once again, a lateral fluoroscopic x-ray helped identify the correct levels for dissection. A rongeur was used to grasp the L4 spinous processes and demonstrate the mobility of the L4-L5 segments. The entirety of the L4 lamina was resected utilizing Kerrison rongeur upcuts combined with Leksell rongeurs. Bilateral and central partial laminectomies were performed at the caudal end of the lamina of L3 and the rostral end of the L5 lamina. All harvested bone was saved, freed of fibrous tissue, and morselized with a bone mill. Next, an osteotome was utilized to longitudinally split the pars interarticularis and the inferior facet of L4. The osteotomized bone was imploded towards the thecal sac, which was protected with cottonoid patties, and removed with either a Leksell rongeur or a Kerrison ronguer. Upon removal of all osteotomized bone, we gained clear and easy access to the superior facet of L5, where tight recess stenosis was appreciated. The exiting L4 & L5 nerve roots were identified and protected. The medial edge of the superior facet was resected on each side using Kerrison rongeurs. This freed the theca and the exiting nerve roots at each level. Each foramen at L4-L5 was inspected utilizing an angled ball-tipped probe and proved to be generously capacious in accommodating the unobstructed exit of the nerve root at that level. The crowding of the convoluted ligamentum flavum and posterior facet joint capsules contributed to the recess stenosis. These structures were excised using Kerrison upcuts, thus fully completing the decompression. All retractors were relaxed and removed. A Jamshidi needle was delivered into the left posterior ileum through the same surgical incision. Via this, 60 mL of bone marrow was aspirated and spun down to isolate a mix of osteoprogenitor and hematopoietic cells. Retractors were inserted once again. The theca was gently mobilized from right to left using a nerve root retractor. In order to do this, we ensured that each nerve root was completely free in its neural foramen as previously described. It was immediately evident that a large sequestrated fragment of herniated L4- L5 disc had extruded through, and was trapped by, the posterior longitudinal ligament. This disc fragment was having a direct compressive mass effect on the local exiting nerve roots. With the L4-L5 disc clearly visualized, large epidural veins were cauterized using bipolar electrocautery. With gentle downward pressure on the adjacent, intact portion of the annulus fibrosis, a large volume of disc material was expressed via the annular defect. A portion of the sequestered and extruded disc was adherent to the thecal sac. During meticulous dissection of this fragment, a short 2 cm longitdunal durotomy occurred. This was promptly repaired with 4-0 Nurolon suture. Throughout the remainder of the case, numerous Valsalva maneuvers controlled by the anesthesiologist held up to 40mmHg ensured a water-tight, successful dural repair. The disc was approached from the right side and using a #11-blade, an elliptical annulotomy was performed. Renetta were passed into the disc at each level. At each level the discs were morselized with rotation of the renetta, and then extricated with pituitary rongeurs and saved for lab evaluation. The end plates were freed of all soft tissues using a serrated curette. Milled bone autograft was packed into the interbody space, thus completing an anterior arthrodesis of the intervertebral space. A size 80g36lo Fortilink Tetrafuse spacer, that was packed with autograft bone, was inserted. The cages were placed in a Press-Fit type manner where the renetta were one size under the actual size of the spacer placed as outlined above. An interference fit of the cage assured as we relied on ligamentotaxis for fixation. No dural problems were encountered, and the dura appeared healthy throughout the procedure. Pedicle screws were then seated bilaterally from L4-L5 utilizing standard anatomical guidelines: IE the intersection of the horizontal axis of the transverse process with the longitudinal axis of the inferior facet at each level. Utilizing lateral fluoroscopic x-ray, a 4.5mm pneumatic drill was passed via the pedicle at each level, into the corresponding vertebral body. Imaging allowed us to ensure that the drill screw was delivered along the undersurface of each endplate. This was the best quality bone in this osteopenic bone bed. Each pedicle was palpated with a ball-tipped feeler. No breech of anterior, medial, lateral, caudal or cranial bone bed was noted. Size 6.5x40mm Precision screws were inserted from L4 to L5. Each screw was reevaluated with lateral and anteroposterior fluoroscopy. The L4 and L5 pedicles were inspected and palpated using an angled ball-tipped probe. There was no evidence of screw breach involving any of the pedicles. Next, two rods were inserted and fixed into the screw heads with the appropriate screw caps. A torque-limiting device completed the fixation of each cap into each screw head. No crosslink utilized because of proximity to the bulging dura. The muscle was gently retracted off the intertransverse plane. All packing sponges were removed. Milled autologous bone, with allograft expansion, was combined with the bone marrow aspirate concentrate and used for the posterolateral arthrodesis along the intertransverse plane from L4 to L5. The recipient bone bed was denuded of all soft tissue. No burring was necessary due to healthy bleeding of each bony surface, including the posterior surface of the transverse processes and the lateral surface of the pars interarticularis at each level. Throughout the case, the wound was irrigated with normal saline solution to keep the exposed soft tissues hydrated. The retractors were released every 15 to 20 minutes to enable adequate blood flow to the paraspinal muscles. These muscles were gently massaged upon release of the retractors to further facilitate blood flow. At the end of the procedure, fragmented and compromised paraspinal muscle was superficially debrided. The dura was inspected and was completely intact. Closure: The lumbodorsal fascia overlying the paraspinal musculature was closed in the midline using #1 vicryl sutures in simple interrupted fashion. Due to excellent hemostasis, no drain was used. The wound was repeatedly thoroughly irrigated with normal saline solution. The subcutaneous tissues were closed using #1 Vicryl sutures. The skin was closed using a running 2-0 Biosyn absorbable suture. This completed a complex, 4-layered wound closure of approximately 20cm. The skin was then painted with benzoin and Steri-Strips were applied perpendicular to the incision. A Primapore adhesive Telfa island dressing was applied over the Steri-Strips and a sterile, compressive dressing was applied using 4x4 gauze pads. The skin was painted with DuraPrep. The wound was then sealed with adhesive Ioban. Final AP & lateral fluoroscopic analysis revealed a L4-L5 PLIF cage and L4-L5 instrumentation that appeared intact & place. The L4-L5 disc height was reconstituted with visibly patent neuroforaminae. There was no fluoroscopic evidence of retained sponges or needles. The sponge and needle counts were correct at the end of the case and I, the attending surgeon, was present and scrubbed throughout the case. The patient was transferred to a hospital bed. The patient was then transferred to the recovery room in stable condition, as per the anesthesia team, having tolerated the procedure well. Overall comment: Operation went extremely well with no complications. All appropriate goals were achieved in the execution of this operative event. Technically difficult case due to patient obesity, wound depth, and adherence of herniated disc fragment to thecal sac. MD CASSIUS Menard/[id number] MTDD
[2019-06-03] MEDS ORDERED: ENALAPRIL MALEATE 10 MG TABLET (FP) PO SCH (10:00)
[2019-06-03] MEDS: HYDROmorphone *PCA* 10MG/50ML DISP.SYRIN PCA SCH ×3 (10:24→18:49)
--- NOTE | 2019-06-03 13:29 | PN ---
Teaching Attending Note Name of Resident: Sujatha Clinton ATTENDING PHYSICIAN STATEMENT I saw and evaluated the patient. I reviewed the resident's note and discussed the case with the resident. I agree with the resident's findings and plan as documented. SUBJECTIVE: Pt seen and examined in the ICU. Pain relatively controlled. Denies nausea or vomiting. No flatus yet. No fevers or chills. OBJECTIVE: Vital Signs Period Temp Pulse Resp BP Sys/Mccauley Pulse Ox Last 24 Hr 98.2 F-98.9 F 67-98 14-20 115-168/63-89 93-98 Intake & Output 05/31/19 06/01/19 06/02/19 06/03/19 23:59 23:59 23:59 23:59 Intake Total 1110 3400 900 Output Total 200 2550 950 Balance 910 850 -50 Weight 110.365 kg 110.223 kg Gen: NAD at rest Heart: RRR Lung: decreased breath sounds at the bases Abd: soft, nontender Ext: no edema CBC, BMP 06/03/19 05:20 06/03/19 05:20 Active Medications Acetaminophen (Ofirmev Injection -) 1,000 mg IVPB Q8H [facility] Stop: 06/03/19 14:01 Last Admin: 06/03/19 05:28 Dose: 1,000 mg Amlodipine Besylate (Norvasc -) 10 mg PO HS [facility] Chlorhexidine Gluconate (Hibiclens For Decolonization -) 1 applic TP HS [facility] Last Admin: 06/03/19 00:07 Dose: Not Given Enalapril Maleate (Vasotec -) 10 mg PO BID [facility] Last Admin: 06/03/19 12:05 Dose: 10 mg Hydromorphone HCl (Hydromorphone 10 Mg/50 Ml-Ns) 10 mg CRYSTALIZER CRYSTALIZER [facility]; Protocol Stop: 06/09/19 22:10 Last Admin: 06/03/19 10:24 Dose: 10 mg Lactated Ringer's (Lactated Ringers Solution) 1,000 mls @ 75 mls/hr IV ASDIR [facility] Last Admin: 06/03/19 00:08 Dose: 75 mls/hr Cefazolin Sodium/Dextrose (Ancef 2 Gm Premixed Ivpb -) 2 gm in 50 mls @ 100 mls /hr IVPB Q6H [facility] Stop: 06/03/19 14:29 Last Admin: 06/03/19 08:55 Dose: 100 mls/hr Insulin Aspart (Novolog Vial Sliding Scale -) 1 vial SQ ACHS [facility]; Protocol Last Admin: 06/03/19 12:10 Dose: Not Given Metformin HCl (Glucophage -) 1,000 mg PO BIDAC [facility] Last Admin: 06/03/19 06:09 Dose: 1,000 mg Mupirocin (Bactroban Ointment (For Decolonization) -) 1 applic NS BID [facility] Stop: 06/07/19 21:59 Last Admin: 06/03/19 09:04 Dose: 1 applic Promethazine HCl (Phenergan Injection -) 12.5 mg IVPUSH Q6H PRN PRN Reason: NAUSEA AND/OR VOMITING ASSESSMENT AND PLAN: L4-L5 Disc Prolapse with radiculopathy s/p L4 laminectomies/L4-L5 PLIF/insertion of biomechanical device HTN DM - pain control - incentive spirometry - PO when flatus - d/c byrnes when OOB - rehab/PT - DVT prophylaxis
--- NOTE | 2019-06-03 13:53 | PN ---
Physical Exam: SUBJECTIVE: Patient seen and examined at the bedside. Reports that he is feeling well and his RESPIRATORY MANAGER pump is helping his pain. Denies passing flatus yet. Denies any pain or weakness. OBJECTIVE: Vital Signs Period Temp Pulse Resp BP Sys/Mccauley Pulse Ox Last 24 Hr 98.2 F-98.9 F 67-98 14-20 115-168/63-89 93-98 GENERAL: Awake, alert, and fully oriented, in no acute distress. Complained of back pain. HEAD: Normal with no signs of trauma. EYES: Pupils equal, round and reactive to light, extraocular movements intact, sclera anicteric, conjunctiva clear. EARS, NOSE, THROAT: Oropharynx clear without exudates. Moist mucous membranes. NECK: Normal range of motion, supple without lymphadenopathy, JVD, or masses. LUNGS: Breath sounds equal, clear to auscultation bilaterally. No wheezes, and no crackles. No accessory muscle use. HEART: Regular rate and rhythm, normal S1 and S2 without murmur, rub. ABDOMEN: Soft, nontender, not distended, normoactive bowel sounds, no guarding, no rebound, no masses. MUSCULOSKELETAL: Normal range of motion at all joints. No bony deformities or tenderness. No CVA tenderness. UPPER EXTREMITIES: 2+ pulses, warm, well-perfused. No cyanosis. No clubbing. Cap refill <2 seconds. No peripheral edema. LOWER EXTREMITIES: 2+ pulses, warm, well-perfused. No calf tenderness. No peripheral edema. NEUROLOGICAL: Cranial nerves II-XII intact. Normal speech. 5/5 muscle strength throughout upper and lower extremities bilaterally. Reduced movement in hip flexion and extension secondary to pain from surgery. Sensation intact throughout. PSYCHIATRIC: Cooperative. Good eye contact. Appropriate mood and affect. SKIN: Warm, dry, normal turgor, no rashes or lesions noted. Laboratory Results - last 24 hr 06/02/19 06/03/19 06/03/19 23:48 05:19 05:20 WBC 16.2 H RBC 4.42 Hgb 12.5 Hct 37.8 MCV 85.4 MCH 28.3 MCHC 33.1 RDW 13.2 Plt Count 420 MPV 7.5 Sodium Potassium Chloride Carbon Dioxide Anion Gap BUN Creatinine Est GFR (CKD-EPI)AfAm Est GFR (CKD-EPI)NonAf POC Glucometer 225 122 Random Glucose Calcium 06/03/19 06/03/19 05:20 12:09 WBC RBC Hgb Hct MCV MCH MCHC RDW Plt Count MPV Sodium 139 Potassium 4.7 Chloride 102 Carbon Dioxide 30 Anion Gap 7 L BUN 13.4 Creatinine 0.8 Est GFR (CKD-EPI)AfAm 119.04 Est GFR (CKD-EPI)NonAf 102.71 POC Glucometer 104 Random Glucose 127 H Calcium 9.0 Active Medications Generic Name Dose Route Start Last Admin Trade Name Freq PRN Reason Stop Dose Admin Acetaminophen 1,000 mg 06/03/19 06:00 06/03/19 13:44 Ofirmev Injection - IVPB 06/03/19 14:01 1,000 mg Q8H [facility] Administration Amlodipine Besylate 10 mg 06/03/19 22:00 Norvasc - PO HS [facility] Chlorhexidine Gluconate 1 applic 06/02/19 22:00 06/03/19 00:07 Hibiclens For Decolonization - TP Not Given HS [facility] Enalapril Maleate 10 mg 06/03/19 10:00 06/03/19 12:05 Vasotec - PO 10 mg BID [facility] Administration Hydromorphone HCl 10 mg 06/02/19 22:15 06/03/19 10:24 Hydromorphone 10 Mg/50 Ml-Ns RESPIRATORY MANAGER 06/09/19 22:10 10 mg RESPIRATORY MANAGER [facility] Administration Protocol Lactated Ringer's 1,000 mls @ 75 mls/hr 06/02/19 22:15 06/03/19 00:08 Lactated Ringers Solution IV 75 mls/hr ASDIR [facility] Administration Cefazolin Sodium/Dextrose 2 gm in 50 mls @ 100 mls/hr 06/03/19 02:00 13:45 Ancef 2 Gm Premixed Ivpb - IVPB 06/03/19 14:29 100 mls/hr Q6H [facility] Administration Insulin Aspart 1 vial 06/03/19 07:00 06/03/19 12:10 Novolog Vial Sliding Scale - SQ Not Given ACHS [facility] Protocol Metformin HCl 1,000 mg 06/03/19 07:00 06/03/19 06:09 Glucophage - PO 1,000 mg BIDAC [facility] Administration Mupirocin 1 applic 06/02/19 22:00 06/03/19 09:04 Bactroban Ointment (For Decolonization) - NS 06/07/19 21:59 1 applic BID [facility] Administration Promethazine HCl 12.5 mg 06/02/19 22:36 Phenergan Injection - IVPUSH Q6H PRN NAUSEA AND/OR VOMITING ASSESSMENT/PLAN: Raghavendra Reddy is a 54 year old male with a past medical history of lumbar intervertebral disc prolapse with associated stenosis, spondylotic radiculopathy , neurogenic claudication, hypertension, DM admitted to the ICU for continued monitoring s/p orthopedic back surgery with Dr. Saunders. NEUROLOGIC - alert and oriented - neurochecks q shift - pain management as per anesthesia - RESPIRATORY MANAGER pump - IV Tylenol - NO NSAIDS CARDIOLOGY - continue home amlodipine 10mg daily - continue home enalapril 10mg bid RESPIRATORY - NC as needed - encourage incentive spirometry RENAL - no acute issues GASTROINTESTINAL - promethazine 12.5mg q6h IV push as needed for nausea GENITOURINARY - byrnes in - february dc when starting to ambulate INFECTIOUS DISEASE - continue ancef x3 - continue vancomycin x1 - elevated WBC, likely reactive - afebrile ENDOCRINE - continue home metformin 1000mg bid - BGM ACHS - ISS HEMATOLOGY - continue to monitor Hgb counts s/p surgery - 250cc EBL - 1300 fluid replaced in OR - morning labs to trend counts - elevated WBC, likely reactive, continue to monitor MUSCULOSKELETAL - continue to monitor neuro exam - PT/OT/rehab - early ambulation - no bending/lifting/twisting for 9 months - f/u outpatient with Dr. Saunders s/p discharge PSYCHIATRY - no acute issues F/E/N - LR at 75cc - continue to monitor electrolytes and replete as necessary - NPO until flatus LINES - R FA inserted 06/01 PROPHYLAXIS - SCDs - no chemical prophylaxis CODE - full code DISPO - patient is stable for transfer to [facility] to continue post-op recovery Visit type - Emergency Visit Emergency Visit: No - New Patient This patient is new to me today: Yes Date on this admission: 06/03/19 - Critical Care Critical Care patient: Yes Total Critical Care Time (in minutes): 40 Critical Care Statement: The care of this patient involved high complexity decision making to prevent further life threatening deterioration of the patient 's condition and/or to evaluate & treat vital organ system(s) failure or risk of failure. ATTENDING PHYSICIAN STATEMENT I saw and evaluated the patient. I reviewed the resident's note and discussed the case with the resident. I agree with the resident's findings and plan as documented. SUBJECTIVE: OBJECTIVE: ASSESSMENT AND PLAN:
--- NOTE | 2019-06-03 15:23 | PN ---
Progress Note (short form) - Note Progress Note: Anesthesia POD#1 S/P PLIF under GA and CARDIAC TECH VSS,pain is a lot,no N/V. No other complications seen. A/P Continue the CARDIAC TECH for today. Vane Cruz MD.
[2019-06-03] MEDS ORDERED: PROMETHAZINE HCL 25 MG/1 ML VIAL IVPB PRN (15:47)
[2019-06-03] MEDS: LIDOCAINE PATCH REMOVAL MC SCH (17:10)
[2019-06-03] MEDS: metFORMIN HCL 500 MG TABLET (FP) PO SCH (17:23)
--- NOTE | 2019-06-03 19:37 | PN ---
Progress Note, Physician Chief Complaint: back pain, nausea - Current Medication List Current Medications: Active Medications Amlodipine Besylate (Norvasc -) 10 mg PO HS [facility] Enalapril Maleate (Vasotec -) 10 mg PO BID [facility] Hydromorphone HCl (Hydromorphone 10 Mg/50 Ml-Ns) 10 mg TRIM SETTER TRIM SETTER [facility]; Protocol Stop: 06/09/19 22:10 Last Admin: 06/03/19 18:49 Dose: 10 mg Lactated Ringer's (Lactated Ringers Solution) 1,000 mls @ 75 mls/hr IV ASDIR [facility] Last Admin: 06/03/19 17:09 Dose: Not Given Insulin Aspart (Novolog Vial Sliding Scale -) 1 vial SQ ACHS [facility]; Protocol Last Admin: 06/03/19 17:21 Dose: Not Given Metformin HCl (Glucophage -) 1,000 mg PO BIDAC [facility] Last Admin: 06/03/19 17:23 Dose: 500 mg Promethazine HCl (Phenergan Injection -) 12.5 mg IVPB Q6H PRN PRN Reason: NAUSEA AND/OR VOMITING - Objective Vital Signs: Vital Signs Temperature 99.7 F H 06/03/19 15:00 Pulse Rate 88 06/03/19 18:49 Respiratory Rate 18 06/03/19 18:49 Blood Pressure 146/80 06/03/19 18:49 O2 Sat by Pulse Oximetry (%) 98 06/03/19 18:49 Constitutional: Yes: No Distress Eyes: Yes: WNL HENT: Yes: WNL Neck: Yes: WNL Cardiovascular: Yes: WNL Respiratory: Yes: WNL Gastrointestinal: Yes: Hypoactive Bowel Sounds Genitourinary: Yes: WNL Musculoskeletal: Yes: Back Pain Extremities: Yes: WNL Edema: No Peripheral Pulses WNL: Yes Integumentary: Yes: WNL Wound/Incision: Yes: Clean/Dry, Well Approximated, Dressing Dry and Intact Neurological: Yes: WNL Psychiatric: Yes: WNL Labs: CBC, BMP 06/03/19 05:20 06/03/19 05:20 INR, PTT INR 1.07 (0.83-1.09) 06/01/19 16:49 Assessment/Plan -54-year-old male s/p: 1. L4 bilateral laminectomies & inferior facetectomies 2. L5 superior facetectomies 2. L4-L5 posterior instrumentation 3. L4-L5 discectomy 4. L4-L5 posterior lumbar interbody fusion 5. L4-L5 insertion biomechanical device 6. L4-L5 posterolateral arthrodesis 7. Bone allograft 8. Bone autograft 9. Bone marrow aspiration & concentrate autograft 10. Complex wound closure (15cm) 11. Durotomy repair denies chest pain, palpitations. positive for nausea cont pain management. NPO as he is not passing gas. -GI, DVT prophylaxis. -leucocytosis, reactive thrmbocytosis: afebrile. etiology unclear. will monitor. -ID: IV antibiotics given babak-operatively. -morbid obesity: weight loss and healthier lifestyle advised. -reduced anion gap: from reduced PO protein intake. -assessment and plan discussed at length with pt and at bedside case discussed with Dr Saunders labs and meds reviewed calls answered throughout the day. 45 min
[2019-06-03] MEDS ORDERED: oxyCODONE HCL 5 MG TABLET PO PRN (21:06)
[2019-06-03] MEDS: ACETAMINOPHEN 1000 MG/100 ML VIAL (NON FORMULARY) IVPB PRN (21:26)
[2019-06-03] MEDS ORDERED: amLODIPine BESYLATE 10 MG TABLET (FP) PO SCH (22:00)
[2019-06-03] MEDS ORDERED: LIDOCAINE PATCH REMOVAL MC SCH (22:00)
[2019-06-03] MEDS ORDERED: CHLORHEXIDINE GLUCONATE 4% CLEANSER FOR DECOLONIZATION TP SCH (22:00)
[2019-06-03] MEDS ORDERED: MUPIROCIN 2% TOPICAL OINTMENT FOR DECOLONIZATION NS SCH (22:00)
[2019-06-03] MEDS: ENALAPRIL MALEATE 10 MG TABLET (FP) PO SCH (22:08)
[2019-06-03] MEDS: amLODIPine BESYLATE 10 MG TABLET (FP) PO SCH (22:08)
[2019-06-04] MEDS: ACETAMINOPHEN 1000 MG/100 ML VIAL (NON FORMULARY) IVPB PRN ×2 (05:58→20:46)
[2019-06-04] MEDS: HYDROmorphone *PCA* 10MG/50ML DISP.SYRIN PCA SCH ×2 (06:02→18:38)
[2019-06-04] MEDS: INSULIN SLIDING SCALE (NOVOLOG) 1 VIAL SQ SCH ×4 (06:29→22:56)
[2019-06-04] MEDS: metFORMIN HCL 500 MG TABLET (FP) PO SCH ×2 (06:29→19:53)
[2019-06-04 08:09] LABS: BASO % 0.5 % (0-2.0); HEMATOCRIT 38.4 % (35.4-49); HEMOGLOBIN 12.5 GM/dL (11.7-16.9); LYMPH % 10.9 % (8-40); MCH 28.4 pg (25.7-33.7); MCHC 32.7 g/dl (32.0-35.9); MEAN CELL VOLUME 86.8 fl (80-96); MEAN PLT VOLUME 7.8 fl (7.5-11.1); MONO % 12.5 % (3.8-10.2); NEUT % 76.1 % (42.8-82.8); PLATELET COUNT 434 K/MM3 (134-434); RBC 4.42 M/mm3 (4.00-5.60); RDW 13.2 % (11.9-15.9)
[2019-06-04 08:13] LABS: HEMATOCRIT 37.9 % (35.4-49); HEMOGLOBIN 12.5 GM/dL (11.7-16.9); MCH 28.3 pg (25.7-33.7); MCHC 32.9 g/dl (32.0-35.9); MEAN CELL VOLUME 86.1 fl (80-96); MEAN PLT VOLUME 7.5 fl (7.5-11.1); PLATELET COUNT 422 K/MM3 (134-434); RDW 13.3 % (11.9-15.9); WHITE BLOOD COUNT 18.6 K/mm3 (4.0-10.0)
--- NOTE | 2019-06-04 08:26 | PN ---
Progress Note (short form) - Note Progress Note: Patient stable and c/o pain score of 7-8/10 on movement on dilaudid service station operator and Ofirmev.Will continue service station operator today and will f/u tomorrow.
[2019-06-04 08:42] LABS: BLOOD UREA NITROGEN 11.8 mg/dL (7-18); CALCIUM 8.8 mg/dL (8.5-10.1); CREATININE 0.7 mg/dL (0.55-1.3); POTASSIUM 4.3 mmol/L (3.5-5.1)
[2019-06-04] MEDS: ENALAPRIL MALEATE 10 MG TABLET (FP) PO SCH ×2 (11:11→22:10)
--- NOTE | 2019-06-04 13:40 | EKG ---
Test Reason : Blood Pressure : / mmHG Vent. Rate : 076 BPM Atrial Rate : 076 BPM P-R Int : 140 ms QRS Dur : 082 ms QT Int : 374 ms P-R-T Axes : 044 015 010 degrees QTc Int : 420 ms NORMAL SINUS RHYTHM NORMAL ECG NO PREVIOUS ECGS AVAILABLE Confirmed by JIN CHAPARRO MD ([id number]) on 06/04/2019 1:39:53 PM Referred By: Confirmed By:JIN CHAPARRO MD
--- NOTE | 2019-06-04 15:28 | PDOC ---
Documentation entered by Josefina Jhaveri SCRIBE, acting as scribe for Margie Ordonez MD. Margie Ordonez MD: This documentation has been prepared by the scribe, Josefina Jhaveri SCRIBE, under my direction and personally reviewed by me in its entirety. I confirm that the documentation accurately reflects all work, treatment, procedures, and medical decision making performed by me. Attending Attestation - Resident Resident Name: Meenakshi Cai - ED Attending Attestation I have performed the following: I have examined & evaluated the patient, The case was reviewed & discussed with the resident, I agree w/resident's findings & plan, Exceptions are as noted - HPI HPI: 06/01/19 16:17 The patient is a 54-year-old male with past medical history of spinal stenosis/ chronic low back pain last MRI April 2019, who presents to the ER today with a flare of his low back pain. He states it has gotten worse over the last 2 days. He states this problem has been going on for the last 2 months and continually gotten worse. He saw his neurosurgeon on 05/29/19 for similar symptoms and was prescribed tramadol and percocet with minimal relief of his symptoms. He reports that he is unable to ambulate even a short distance due to the pain. The patient denies any fevers, chills, nausea, vomiting, diarrhea, or abdominal pain. Denies any chest pain, palpitations, or shortness of breath. Denies any urinary symptoms. Denies any weakness, dizziness, lightheadedness, or strength or sensory changes. Allergies: Penicillins, sulfamethoxazole, trimethoprim. Neurosurgeon: Dr. Allan Saunders - Physicial Exam PE: 06/01/19 16:20 GENERAL: Awake, alert, and fully oriented, in no acute distress HEAD: No signs of trauma EYES: PERRLA, EOMI, sclera anicteric, conjunctiva clear ENT: Auricles normal inspection, hearing grossly normal, nares patent, oropharynx clear without exudates. Moist mucosa NECK: Normal ROM, supple, no lymphadenopathy, JVD, or masses LUNGS: Breath sounds equal, clear to auscultation bilaterally. No wheezes, and no crackles HEART: Regular rate and rhythm, normal S1 and S2, no murmurs, rubs or gallops ABDOMEN: Soft, nontender, normoactive bowel sounds. No guarding, no rebound. No masses EXTREMITIES: Normal range of motion, no edema. No clubbing or cyanosis. No cords, erythema, or tenderness NEUROLOGICAL: Cranial nerves II through XII grossly intact. Normal speech. Motor and sensation intact. Gait not tested due to nature of complaint. Straight leg raise positive at 40 degrees SKIN: Warm, Dry, normal turgor, no rashes or lesions noted - Medical Decision Making Pt sent by Dr. Saunders for admission for sciatica, increasing neuro symptoms, inability to ambulate.
--- NOTE | 2019-06-04 17:52 | PATH ---
Surgical Pathology Report Patient Name: REYES WHARTON Med. Rec. #: [id number] /Age/Gender: 1965 (Age: 54) / M Account: [id number] Location: [facility] MED/SURG Taken: 06/02/2019 Received: 06/03/2019 Reported: 06/04/2019 Physicians: Allan Saunders M.D. Specimen(s) Received DISC L4-L5 Clinical History Herniated disc Final Diagnosis DISC, L4-5, POSTERIOR LUMBAR INTERBODY FUSION: BENIGN INTERVERTEBRAL DISC TISSUE AND BONE. Electronically Signed Deyanira Serrato M.D. Gross Description Received in formalin labeled "L4-L5 disc," is a 3.5 x 3.0 x 0.3 cm aggregate of elliott brown fragments of fibrocartilaginous tissue. A customer counter representative portion is submitted in one cassette. /06/03/2019 saudi06/03/2019
--- NOTE | 2019-06-04 17:55 | PN ---
Progress Note, Physician Chief Complaint: back pain, nausea - Current Medication List Current Medications: Active Medications Acetaminophen (Ofirmev Injection -) 1,000 mg IVPB Q8H PRN PRN Reason: PAIN 1-5 Last Admin: 06/04/19 05:58 Dose: 1,000 mg Amlodipine Besylate (Norvasc -) 10 mg PO HS [facility] Last Admin: 06/03/19 22:08 Dose: 10 mg Enalapril Maleate (Vasotec -) 10 mg PO BID [facility] Last Admin: 06/04/19 11:11 Dose: 10 mg Hydromorphone HCl (Hydromorphone 10 Mg/50 Ml-Ns) 10 mg RANGELANDS CONSERVATION LABORER RANGELANDS CONSERVATION LABORER [facility]; Protocol Stop: 06/09/19 22:10 Last Admin: 06/04/19 06:02 Dose: 10 mg Lactated Ringer's (Lactated Ringers Solution) 1,000 mls @ 75 mls/hr IV ASDIR [facility] Last Admin: 06/03/19 17:09 Dose: Not Given Insulin Aspart (Novolog Vial Sliding Scale -) 1 vial SQ ACHS [facility]; Protocol Last Admin: 06/04/19 12:00 Dose: 2 units Metformin HCl (Glucophage -) 1,000 mg PO BIDAC [facility] Last Admin: 06/04/19 06:29 Dose: 1,000 mg Oxycodone HCl (Roxicodone -) 10 mg PO Q6H PRN PRN Reason: PAIN 5-10 Last Admin: 06/04/19 01:54 Dose: 10 mg Promethazine HCl (Phenergan Injection -) 12.5 mg IVPB Q6H PRN PRN Reason: NAUSEA AND/OR VOMITING Last Admin: 06/04/19 14:46 Dose: 12.5 mg - Objective Vital Signs: Vital Signs Temperature 100.1 F H 06/04/19 14:00 Pulse Rate 109 H 06/04/19 14:00 Respiratory Rate 18 06/04/19 14:00 Blood Pressure 135/92 06/04/19 14:00 O2 Sat by Pulse Oximetry (%) 97 06/04/19 10:02 Constitutional: Yes: Mild Distress Eyes: Yes: WNL HENT: Yes: WNL Neck: Yes: WNL Cardiovascular: Yes: WNL Respiratory: Yes: WNL Gastrointestinal: Yes: Hypoactive Bowel Sounds Genitourinary: Yes: WNL Musculoskeletal: Yes: Back Pain, Joint Stiffness Extremities: Yes: WNL Edema: No Peripheral Pulses WNL: Yes Integumentary: Yes: WNL Wound/Incision: Yes: Clean/Dry, Well Approximated Neurological: Yes: WNL Labs: CBC, BMP 06/04/19 06:43 06/04/19 06:43 INR, PTT INR 1.07 (0.83-1.09) 06/01/19 16:49 Assessment/Plan -54-year-old male s/p: 1. L4 bilateral laminectomies & inferior facetectomies 2. L5 superior facetectomies 2. L4-L5 posterior instrumentation 3. L4-L5 discectomy 4. L4-L5 posterior lumbar interbody fusion 5. L4-L5 insertion biomechanical device 6. L4-L5 posterolateral arthrodesis 7. Bone allograft 8. Bone autograft 9. Bone marrow aspiration & concentrate autograft 10. Complex wound closure (15cm) 11. Durotomy repair denies chest pain, palpitations. positive for nausea. requesting abdominal CT as his abdomen is more distended. still no flatus. r/o SBO. cont pain management. NPO as he is not passing gas. -GI, DVT prophylaxis. -leucocytosis, reactive thrmbocytosis: now with fever. ID: IV antibiotics given babak-operatively. ID eval requested. -morbid obesity: weight loss and healthier lifestyle advised. -reduced anion gap: from reduced PO protein intake. -assessment and plan discussed at length with pt and at bedside case discussed with Dr Saunders labs and meds reviewed calls answered throughout the day. 45 min
[2019-06-04] MEDS: LACTATED RINGERS SOLUTION 1,000 ML IV SCH (18:41)
[2019-06-04] MEDS ORDERED: ONDANSETRON 4 MG/2 ML VIAL IVPUSH PRN (20:14)
[2019-06-04] MEDS ORDERED: KETOROLAC TROMETHAMINE 30 MG/1 ML VIAL IVPUSH ONE (20:17)
--- NOTE | 2019-06-04 20:25 | PN ---
Progress Note (short form) - Note Progress Note: 54M s/p L4-L5 PLIF w/posterolateral instrumented arthrodesis POD #2. Pt. reports nausea and vomiting throughout the day today; maneuvers of vomiting/ retching exacerbate post-operative low back pain. Pre-operative RLE radiculopathy completely resolved. No acute events overnight. Pt. denies overnight history of headaches, chest pain, shortness of breath, chills, & sweats. (+) Stephens catheter; (-) Flatus; (-) BM. Stood with PT. All labs and vitals reviewed. PE: AAO x 3, NAD. L-Spine: Dressing C/D/I. B/L LE M: Minimum 3/5; functional weakness d/t recency of surgery. B/L LE S: L2-S1 2/2. 54M s/p L4-L5 PLIF w/posterolateral instrumented arthrodesis POD #2. -Zofran, Toradol x 1, Ofirmev q6h ordered; Dilaudid CLEAN ROOM ASSEMBLER discontinued; anesthesia team to reassess. -DVT PPx: -Mechanical only: DARCY's, SCD's. -Chemical: None. -Incentive spirometry q15 min. -NPO until flatus. -Stephens care; d/c when ambulating. -PT/OT/Rehab, OOB. -WBAT B/L LE. -No bending, lifting (>5 lbs), or twisting for 9-12 months. -Care per ICU & medical hospitalist Dr. Bernal. -f/u ID recommendations (Dr. Espinoza). -Discharge planning: [facility] for [facility]; . -Will follow. Allan Saunders MD (Orthopaedic Surgery).
[2019-06-04] MEDS ORDERED: KETOROLAC TROMETHAMINE 30 MG/1 ML VIAL IVPUSH PRN (20:33)
--- NOTE | 2019-06-04 20:42 | PN ---
Progress Note (short form) - Note Progress Note: Patient c/o pain score of 8-9/10 on Dilaudid interactive video technician and Ofirmev.He also has adistended belly with sluggished bowl sounds.So advised patient to decrease Dilaudid use and will put vpatient on Toradol iv.Will also add Scopolamine patch for n/v.Patient had few episodes of vomiting.Also he is spiking fever 101- 102F so will continue Ofiemev as well.Will f/u tomorrow.
[2019-06-04] MEDS ORDERED: PROMETHAZINE HCL 25 MG/1 ML VIAL IVPB PRN (21:06)
[2019-06-04] MEDS ORDERED: DEXAMETHASONE SOD PHOSPHATE 4 MG/1 ML VIAL IVPUSH PRN (21:06)
[2019-06-04] MEDS ORDERED: morphine SULFATE/PF 30 MG/30 ML *PCA* DISP.SYRIN PCA SCH (21:15)
[2019-06-04] MEDS: amLODIPine BESYLATE 10 MG TABLET (FP) PO SCH (22:00)
[2019-06-05] MEDS: SCOPOLAMINE HYDROBROMIDE 1 PATCH PATCH.TD72 TD SCH (01:10)
[2019-06-05] MEDS ORDERED: morphine SULFATE/PF 30 MG/30 ML *PCA* DISP.SYRIN PCA ONE (01:13)
[2019-06-05] MEDS ORDERED: morphine SULFATE/PF 30 MG/30 ML *PCA* DISP.SYRIN PCA SCH ×2 (01:30→20:30)
[2019-06-05] MEDS: metFORMIN HCL 500 MG TABLET (FP) PO SCH ×2 (06:30→17:39)
[2019-06-05] MEDS: INSULIN SLIDING SCALE (NOVOLOG) 1 VIAL SQ SCH ×4 (06:44→22:29)
--- NOTE | 2019-06-05 08:10 | CON.ID ---
Consult Consult Specialty:: infectious diseases Referred by:: Reason for Consultation:: fever,leukocytsis,post op - History of Present Illness Chief Complaint: abd pain,distension,post op pain History of Present Illness: 54yo M with PMH of NIDDM, HTN was admitted with complaints of worsening lower back pain. Patient states that he has had back pain for the past 8m or so but for the past few months it has been getting worse. He endorses electric like pain shooting down his R leg associated with paresthesia in the R foot and difficulty walking. He has pain whether he is sitting, standing or walking but feels as if his R leg is weaker now. 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 Denies injury, headache, neck pain, upper extremity weakness, abdominal pain, n/v/d, chest pain, sob, swelling, rash, syncope. He was being managed outpatient with pain medications and steroid injections but he states the pain returns and is getting worse. He saw Dr. Saunders last and was advised surgery patient underwent surgery on sunday. according tot patient he was doing well.and now he has started spiking fevers and his wbc has been steadily increasing and now patient is spiking fevers patient mentions that he has been bloated and felt uncomfortable,He says he has started passing gases now main c/o is pain in the back at the operated site patient is currently very nauseous - History Source History Provided By: Patient Limitations to Obtaining History: No Limitations - Past Medical History Cardio/Vascular: Yes: HTN Endocrine: Yes: Diabetes Mellitus - Alcohol/Substance Use Hx Alcohol Use: Yes (occasional) - Smoking History Smoking history: Never smoked Home Medications - Allergies Allergies/Adverse Reactions: Allergies Allergy/AdvReac Type Severity Reaction Status Date / Time Penicillins Allergy Verified 06/01/19 12:51 sulfamethoxazole Allergy Verified 06/01/19 12:51 [From Bactrim] trimethoprim [From Bactrim] Allergy Verified 06/01/19 12:51 - Home Medications Home Medications: Ambulatory Orders Amlodipine Besylate 10 mg PO HS 06/01/19 Enalapril Maleate [Vasotec -] 10 mg PO BID 06/01/19 Enalapril Maleate [Vasotec] 10 mg PO 06/01/19 Gabapentin 800 mg PO TID 06/01/19 Metformin HCl [Glucophage] 1,000 mg PO BID 06/01/19 Oxycodone HCl 5 mg PO TID PRN 06/01/19 Tramadol HCl 100 mg PO TID 06/01/19 Review of Systems - Review of Systems Constitutional: reports: Fever, Other Eyes: reports: No Symptoms HENT: reports: No Symptoms Neck: reports: No Symptoms Cardiovascular: reports: No Symptoms Respiratory: reports: No Symptoms Gastrointestinal: reports: Abdominal Pain, Bloating Genitourinary: reports: No Symptoms Musculoskeletal: reports: No Symptoms Integumentary: reports: No Symptoms Neurological: reports: No Symptoms Endocrine: reports: No Symptoms Hematology/Lymphatic: reports: No Symptoms Psychiatric: reports: No Symptoms Physical Exam Vital Signs: Vital Signs Temperature 99.6 F 06/05/19 07:32 Pulse Rate 109 H 06/05/19 07:32 Respiratory Rate 20 06/05/19 07:32 Blood Pressure 162/76 06/05/19 07:32 O2 Sat by Pulse Oximetry (%) 96 06/05/19 04:00 Constitutional: Yes: Well Nourished, Calm, Mild Distress, Obese Eyes: Yes: Conjunctiva Clear HENT: Yes: Atraumatic, Normocephalic Neck: Yes: Supple, Trachea Midline Cardiovascular: Yes: Regular Rate and Rhythm Respiratory: Yes: Regular, CTA Bilaterally Gastrointestinal: Yes: Distention, Hypoactive Bowel Sounds Renal/: Yes: Stephens Present Musculoskeletal: Yes: WNL Extremities: Yes: WNL Wound/Incision: Yes: Dressing Dry and Intact Neurological: Yes: Alert, Oriented Psychiatric: Yes: Alert, Oriented Labs: CBC, BMP 06/04/19 06:43 06/04/19 06:43 Assessment/Plan this patient who is post op and now spiking fever and leukocytosis with abd distension and nausea and vomitng patient has got ct of the abd abd distension leukocytosis fever back pain plan will start patient on cefazolin await for ct abd results will send a urine monitor wbc and fever wound is dressed--await for the wound dressing
[2019-06-05] MEDS ORDERED: ceFAZolin SODIUM 1 GM VIAL ONE ×3 (09:07→20:16)
[2019-06-05] MEDS ORDERED: DEXTROSE 5%-WATER - 50 ML IVPB ONE ×3 (09:08→20:16)
[2019-06-05] MEDS: ONDANSETRON 4 MG/2 ML VIAL IVPUSH PRN (11:59)
[2019-06-05] MEDS: ENALAPRIL MALEATE 10 MG TABLET (FP) PO SCH ×2 (12:00→22:21)
[2019-06-05] MEDS: CEFAZOLIN 1 GM in DEXTROSE 5%-WATER - 50 ML IVPB SCH ×2 (12:01→17:47)
[2019-06-05] MEDS: morphine SULFATE/PF 30 MG/30 ML *PCA* DISP.SYRIN PCA SCH ×3 (14:25→20:31)
--- NOTE | 2019-06-05 15:07 | PN ---
Progress Note (short form) - Note Progress Note: Pain management follow up POD#4, decreased population geneticist use, ambulated today, abd CT no bowel obstruction. Will continue population geneticist for now, patient still npo. Will change to po meds if patient tolerating clears today.
[2019-06-05] MEDS: LACTATED RINGERS SOLUTION 1,000 ML IV SCH (15:30)
--- NOTE | 2019-06-05 17:10 | PN ---
Progress Note, Physician Chief Complaint: back pain, nausea, abdominal distention, weakness - Current Medication List Current Medications: Active Medications Acetaminophen (Ofirmev Injection -) 1,000 mg IVPB Q6H PRN PRN Reason: PAIN 1-5 Last Admin: 06/04/19 20:46 Dose: 1,000 mg Amlodipine Besylate (Norvasc -) 10 mg PO HS [facility] Last Admin: 06/04/19 22:00 Dose: Not Given Dexamethasone Sodium Phosphate (Decadron Injection -) 4 mg IVPUSH ONCE PRN PRN Reason: NAUSEA AND/OR VOMITING Diphenhydramine HCl (Benadryl Injection -) 12.5 mg IVPUSH Q4H PRN PRN Reason: FOR ITCHING Enalapril Maleate (Vasotec -) 10 mg PO BID [facility] Last Admin: 06/05/19 12:00 Dose: 10 mg Lactated Ringer's (Lactated Ringers Solution) 1,000 mls @ 75 mls/hr IV ASDIR [facility] Last Admin: 06/04/19 18:41 Dose: 75 mls/hr Cefazolin Sodium 1 gm/ (Dextrose) 50 mls @ 100 mls/hr IVPB Q8H-IV [facility] Last Admin: 06/05/19 12:01 Dose: 100 mls/hr Insulin Aspart (Novolog Vial Sliding Scale -) 1 vial SQ ACHS [facility]; Protocol Last Admin: 06/05/19 12:38 Dose: Not Given Ketorolac Tromethamine (Toradol Injection -) 30 mg IVPUSH Q6H PRN PRN Reason: PAIN LEVEL 6-10 Stop: 06/09/19 21:03 Metformin HCl (Glucophage -) 1,000 mg PO BIDAC [facility] Last Admin: 06/05/19 06:30 Dose: Not Given Morphine Sulfate (Morphine Joist Setter -) 0 mg FORGE OPERATOR FORGE OPERATOR ON [facility]; Protocol Stop: 06/08/19 13:57 Last Admin: 06/05/19 14:25 Dose: Not Given Ondansetron HCl (Zofran Injection) 4 mg IVPUSH Q4H PRN PRN Reason: NAUSEA AND/OR VOMITING Last Admin: 06/05/19 11:59 Dose: 4 mg Promethazine HCl (Phenergan Injection -) 12.5 mg IVPB Q6H PRN PRN Reason: NAUSEA AND/OR VOMITING Scopolamine HBr (Transderm-Scop -) 1 patch TD Q72H [facility] Last Admin: 06/05/19 01:10 Dose: 1 patch - Objective Vital Signs: Vital Signs Temperature 99.8 F H 06/05/19 15:00 Pulse Rate 108 H 06/05/19 15:00 Respiratory Rate 20 06/05/19 15:00 Blood Pressure 149/89 06/05/19 15:00 O2 Sat by Pulse Oximetry (%) 96 06/05/19 04:00 Constitutional: Yes: Calm, Mild Distress Eyes: Yes: WNL HENT: Yes: WNL Neck: Yes: WNL Respiratory: Yes: WNL Gastrointestinal: Yes: Abdomen, Obese, Distention, Hypoactive Bowel Sounds Genitourinary: Yes: WNL Musculoskeletal: Yes: Back Pain, Joint Stiffness Extremities: Yes: WNL Edema: No Peripheral Pulses WNL: Yes Integumentary: Yes: WNL Wound/Incision: Yes: Clean/Dry, Well Approximated, Dressing Dry and Intact Neurological: Yes: WNL Psychiatric: Yes: WNL Labs: CBC, BMP 06/04/19 06:43 06/04/19 06:43 INR, PTT INR 1.07 (0.83-1.09) 06/01/19 16:49 Assessment/Plan -54-year-old male s/p: 1. L4 bilateral laminectomies & inferior facetectomies 2. L5 superior facetectomies 2. L4-L5 posterior instrumentation 3. L4-L5 discectomy 4. L4-L5 posterior lumbar interbody fusion 5. L4-L5 insertion biomechanical device 6. L4-L5 posterolateral arthrodesis 7. Bone allograft 8. Bone autograft 9. Bone marrow aspiration & concentrate autograft 10. Complex wound closure (15cm) 11. Durotomy repair denies chest pain, palpitations. positive for nausea. requested abdominal CT as his abdomen is more distended. diagnosed with fecal retention. SBO ruled out. started on laxatives. + flatus today. -GI, DVT prophylaxis. -leucocytosis, reactive thrmbocytosis: with fever. ID eval appreciated. HCAP is possible. on IV cefazolin. UA and C&S sent. -morbid obesity: weight loss and healthier lifestyle advised. -reduced anion gap: from reduced PO protein intake. -assessment and plan discussed at length with pt and at bedside case discussed with Dr Saunders labs and meds reviewed calls answered throughout the day. 45 min
[2019-06-05] MEDS ORDERED: PT OWN MED DRAWER 7, Y5N ONE (18:49)
[2019-06-05] MEDS: DOCUSATE SODIUM 100 MG CAPSULE (FP) PO SCH (22:21)
[2019-06-05] MEDS: amLODIPine BESYLATE 10 MG TABLET (FP) PO SCH (22:22)
[2019-06-06] MEDS: CEFAZOLIN 1 GM in DEXTROSE 5%-WATER - 50 ML IVPB SCH ×3 (01:34→17:32)
[2019-06-06] MEDS: DOCUSATE SODIUM 100 MG CAPSULE (FP) PO SCH ×3 (06:22→22:20)
[2019-06-06] MEDS: metFORMIN HCL 500 MG TABLET (FP) PO SCH ×2 (06:23→17:32)
[2019-06-06] MEDS: LACTATED RINGERS SOLUTION 1,000 ML IV SCH ×2 (06:24→18:38)
[2019-06-06] MEDS: INSULIN SLIDING SCALE (NOVOLOG) 1 VIAL SQ SCH ×4 (06:25→23:40)
[2019-06-06 08:17] LABS: BASO % 0.5 % (0-2.0); EOS % 0.6 % (0-4.5); HEMATOCRIT 34.7 % (35.4-49); HEMOGLOBIN 11.4 GM/dL (11.7-16.9); LYMPH % 12.6 % (8-40); MCH 28.5 pg (25.7-33.7); MCHC 32.8 g/dl (32.0-35.9); MEAN CELL VOLUME 86.8 fl (80-96); MEAN PLT VOLUME 7.4 fl (7.5-11.1); MONO % 8.7 % (3.8-10.2); NEUT % 77.6 % (42.8-82.8); PLATELET COUNT 446 K/MM3 (134-434); RBC 3.99 M/mm3 (4.00-5.60); RDW 13.1 % (11.9-15.9)
[2019-06-06 08:41] LABS: BLOOD UREA NITROGEN 13.4 mg/dL (7-18); CALCIUM 8.5 mg/dL (8.5-10.1); CREATININE 0.7 mg/dL (0.55-1.3); POTASSIUM 4.5 mmol/L (3.5-5.1)
--- NOTE | 2019-06-06 08:46 | PN ---
Progress Note, Physician History of Present Illness: starting to feel better still with high wbc ct of the abd noted pain main issue - Current Medication List Current Medications: Active Medications Acetaminophen (Ofirmev Injection -) 1,000 mg IVPB Q6H PRN PRN Reason: PAIN 1-5 Last Admin: 06/04/19 20:46 Dose: 1,000 mg Amlodipine Besylate (Norvasc -) 10 mg PO HS [facility] Last Admin: 06/05/19 22:22 Dose: 10 mg Dexamethasone Sodium Phosphate (Decadron Injection -) 4 mg IVPUSH ONCE PRN PRN Reason: NAUSEA AND/OR VOMITING Diphenhydramine HCl (Benadryl Injection -) 12.5 mg IVPUSH Q4H PRN PRN Reason: FOR ITCHING Docusate Sodium (Colace -) 100 mg PO TID [facility] Last Admin: 06/06/19 06:22 Dose: 100 mg Enalapril Maleate (Vasotec -) 10 mg PO BID [facility] Last Admin: 06/05/19 22:21 Dose: 10 mg Lactated Ringer's (Lactated Ringers Solution) 1,000 mls @ 75 mls/hr IV ASDIR [facility] Last Admin: 06/06/19 06:24 Dose: 75 mls/hr Cefazolin Sodium 1 gm/ (Dextrose) 50 mls @ 100 mls/hr IVPB Q8H-IV [facility] Last Admin: 06/06/19 01:34 Dose: 100 mls/hr Insulin Aspart (Novolog Vial Sliding Scale -) 1 vial SQ ACHS [facility]; Protocol Last Admin: 06/06/19 06:25 Dose: Not Given Ketorolac Tromethamine (Toradol Injection -) 30 mg IVPUSH Q6H PRN PRN Reason: PAIN LEVEL 6-10 Stop: 06/09/19 21:03 Metformin HCl (Glucophage -) 1,000 mg PO BIDAC [facility] Last Admin: 06/06/19 06:23 Dose: 1,000 mg Morphine Sulfate (Morphine Dispensing And Measuring Optician -) 30 mg TON CONTAINER FILLER TON CONTAINER FILLER [facility]; Protocol Stop: 06/08/19 20:29 Last Admin: 06/05/19 20:31 Dose: 30 mg Ondansetron HCl (Zofran Injection) 4 mg IVPUSH Q4H PRN PRN Reason: NAUSEA AND/OR VOMITING Last Admin: 06/05/19 11:59 Dose: 4 mg Promethazine HCl (Phenergan Injection -) 12.5 mg IVPB Q6H PRN PRN Reason: NAUSEA AND/OR VOMITING Scopolamine HBr (Transderm-Scop -) 1 patch TD Q72H [facility] Last Admin: 06/05/19 01:10 Dose: 1 patch - Objective Vital Signs: Vital Signs Temperature 99.3 F 06/06/19 06:44 Pulse Rate 97 H 06/06/19 08:00 Respiratory Rate 24 H 06/06/19 08:00 Blood Pressure 144/84 06/06/19 08:00 O2 Sat by Pulse Oximetry (%) 91 L 06/06/19 08:00 Constitutional: Yes: No Distress, Calm Cardiovascular: Yes: Regular Rate and Rhythm Respiratory: Yes: Regular, CTA Bilaterally Musculoskeletal: Yes: WNL Extremities: Yes: WNL Wound/Incision: Yes: Dressing Dry and Intact Neurological: Yes: Alert, Oriented Psychiatric: Yes: Alert, Oriented Labs: CBC, BMP 06/06/19 07:08 06/06/19 07:08 INR, PTT INR 1.07 (0.83-1.09) 06/01/19 16:49 Assessment/Plan this patient who is post op and now spiking fever and leukocytosis with abd distension and nausea and vomitng patient has got ct of the abd abd distension leukocytosis fever back pain plan continue current abx monitor wbc rest as per the team
[2019-06-06] MEDS: KETOROLAC TROMETHAMINE 30 MG/1 ML VIAL IVPUSH PRN ×2 (08:49→17:31)
[2019-06-06] MEDS ORDERED: ceFAZolin SODIUM 1 GM VIAL ONE ×2 (10:29→17:20)
[2019-06-06] MEDS ORDERED: DEXTROSE 5%-WATER - 50 ML IVPB ONE ×2 (10:30→17:21)
[2019-06-06] MEDS: ENALAPRIL MALEATE 10 MG TABLET (FP) PO SCH ×2 (10:36→22:20)
[2019-06-06] MEDS ORDERED: morphine SULFATE/PF 30 MG/30 ML *PCA* DISP.SYRIN PCA ONE ×2 (11:30→17:45)
[2019-06-06] MEDS: morphine SULFATE/PF 30 MG/30 ML *PCA* DISP.SYRIN PCA SCH ×2 (11:33→17:47)
--- NOTE | 2019-06-06 12:33 | PN ---
Progress Note, Physician - Current Medication List Current Medications: Active Medications Acetaminophen (Ofirmev Injection -) 1,000 mg IVPB Q6H PRN PRN Reason: PAIN 1-5 Last Admin: 06/04/19 20:46 Dose: 1,000 mg Amlodipine Besylate (Norvasc -) 10 mg PO HS [facility] Last Admin: 06/05/19 22:22 Dose: 10 mg Dexamethasone Sodium Phosphate (Decadron Injection -) 4 mg IVPUSH ONCE PRN PRN Reason: NAUSEA AND/OR VOMITING Diphenhydramine HCl (Benadryl Injection -) 12.5 mg IVPUSH Q4H PRN PRN Reason: FOR ITCHING Docusate Sodium (Colace -) 100 mg PO TID [facility] Last Admin: 06/06/19 06:22 Dose: 100 mg Enalapril Maleate (Vasotec -) 10 mg PO BID [facility] Last Admin: 06/06/19 10:36 Dose: 10 mg Lactated Ringer's (Lactated Ringers Solution) 1,000 mls @ 75 mls/hr IV ASDIR [facility] Last Admin: 06/06/19 06:24 Dose: 75 mls/hr Cefazolin Sodium 1 gm/ (Dextrose) 50 mls @ 100 mls/hr IVPB Q8H-IV [facility] Last Admin: 06/06/19 10:36 Dose: 100 mls/hr Insulin Aspart (Novolog Vial Sliding Scale -) 1 vial SQ ACHS [facility]; Protocol Last Admin: 06/06/19 12:06 Dose: Not Given Ketorolac Tromethamine (Toradol Injection -) 30 mg IVPUSH Q6H PRN PRN Reason: PAIN LEVEL 6-10 Stop: 06/09/19 21:03 Last Admin: 06/06/19 08:49 Dose: 30 mg Metformin HCl (Glucophage -) 1,000 mg PO BIDAC [facility] Last Admin: 06/06/19 06:23 Dose: 1,000 mg Morphine Sulfate (Morphine District Plant Supervisor -) 30 mg SPORTS LEADERSHIP INSTRUCTOR SPORTS LEADERSHIP INSTRUCTOR [facility]; Protocol Stop: 06/08/19 20:29 Last Admin: 06/06/19 11:33 Dose: 30 mg Ondansetron HCl (Zofran Injection) 4 mg IVPUSH Q4H PRN PRN Reason: NAUSEA AND/OR VOMITING Last Admin: 06/05/19 11:59 Dose: 4 mg Promethazine HCl (Phenergan Injection -) 12.5 mg IVPB Q6H PRN PRN Reason: NAUSEA AND/OR VOMITING Scopolamine HBr (Transderm-Scop -) 1 patch TD Q72H [facility] Last Admin: 06/05/19 01:10 Dose: 1 patch - Objective Vital Signs: Vital Signs Temperature 99.3 F 06/06/19 06:44 Pulse Rate 97 H 06/06/19 11:33 Respiratory Rate 26 H 06/06/19 11:33 Blood Pressure 144/84 06/06/19 11:33 O2 Sat by Pulse Oximetry (%) 96 06/06/19 11:33 Constitutional: Yes: Well Nourished, Calm Eyes: Yes: WNL HENT: Yes: WNL Neck: Yes: WNL Cardiovascular: Yes: WNL Respiratory: Yes: WNL Gastrointestinal: Yes: Distention, Hypoactive Bowel Sounds ...Rectal Exam: Yes: WNL Genitourinary: Yes: WNL Musculoskeletal: Yes: Back Pain, Joint Stiffness Extremities: Yes: WNL Edema: No Peripheral Pulses WNL: Yes Integumentary: Yes: WNL Wound/Incision: Yes: Clean/Dry, Well Approximated Neurological: Yes: WNL ...Motor Strength: WNL Psychiatric: Yes: WNL Labs: CBC, BMP 06/06/19 07:08 06/06/19 07:08 INR, PTT INR 1.07 (0.83-1.09) 06/01/19 16:49 Assessment/Plan -54-year-old male s/p: 1. L4 bilateral laminectomies & inferior facetectomies 2. L5 superior facetectomies 2. L4-L5 posterior instrumentation 3. L4-L5 discectomy 4. L4-L5 posterior lumbar interbody fusion 5. L4-L5 insertion biomechanical device 6. L4-L5 posterolateral arthrodesis 7. Bone allograft 8. Bone autograft 9. Bone marrow aspiration & concentrate autograft 10. Complex wound closure (15cm) 11. Durotomy repair denies chest pain, palpitations. positive for nausea. requested abdominal CT as his abdomen is more distended. diagnosed with fecal retention. SBO ruled out. started on laxatives. + flatus today. oral diet well tolerated today. -GI, DVT prophylaxis. -leucocytosis, reactive thrmbocytosis: with fever. ID eval appreciated. HCAP is possible. on IV cefazolin. UA and C&S sent. -morbid obesity: weight loss and healthier lifestyle advised. -reduced anion gap: from reduced PO protein intake. -assessment and plan discussed at length with pt and at bedside case discussed with Dr Saunders labs and meds reviewed calls answered throughout the day. 35 min
[2019-06-06] MEDS: amLODIPine BESYLATE 10 MG TABLET (FP) PO SCH (22:20)
[2019-06-07] MEDS ORDERED: PT OWN MED DRAWER 7, Y5N ONE (02:00)
[2019-06-07] MEDS ORDERED: DEXTROSE 5%-WATER - 50 ML IVPB ONE ×3 (02:11→17:49)
[2019-06-07] MEDS ORDERED: ceFAZolin SODIUM 1 GM VIAL ONE ×3 (02:11→17:49)
[2019-06-07] MEDS: CEFAZOLIN 1 GM in DEXTROSE 5%-WATER - 50 ML IVPB SCH ×3 (02:21→18:05)
[2019-06-07] MEDS: morphine SULFATE/PF 30 MG/30 ML *PCA* DISP.SYRIN PCA SCH (02:59)
[2019-06-07] MEDS: metFORMIN HCL 500 MG TABLET (FP) PO SCH ×2 (06:46→17:06)
[2019-06-07] MEDS: DOCUSATE SODIUM 100 MG CAPSULE (FP) PO SCH ×3 (06:46→21:20)
--- NOTE | 2019-06-07 08:34 | PN ---
Progress Note (short form) - Note Progress Note: Anesthesia /Pain Pt seen and examined S:Alert and awake O: CBC, BMP 06/06/19 07:08 06/06/19 07:08 Vital Signs Temperature 98.8 F 06/07/19 07:20 Pulse Rate 82 06/07/19 07:20 Respiratory Rate 20 06/07/19 07:20 Blood Pressure 137/82 06/07/19 07:20 O2 Sat by Pulse Oximetry (%) 99 06/07/19 06:59 A/P: Current Active Problems Low back pain (Acute) s/p L4-5 PLIF Doing well uses SUBSCRIPTION CLERK Continue Current care Chi Vance MD
[2019-06-07] MEDS: ENALAPRIL MALEATE 10 MG TABLET (FP) PO SCH ×2 (11:12→21:20)
--- NOTE | 2019-06-07 11:33 | PN ---
Progress Note, Physician History of Present Illness: patient stable no new issues pain issues - Current Medication List Current Medications: Active Medications Acetaminophen (Ofirmev Injection -) 1,000 mg IVPB Q6H PRN PRN Reason: PAIN 1-5 Last Admin: 06/04/19 20:46 Dose: 1,000 mg Amlodipine Besylate (Norvasc -) 10 mg PO HS [facility] Last Admin: 06/06/19 22:20 Dose: 10 mg Dexamethasone Sodium Phosphate (Decadron Injection -) 4 mg IVPUSH ONCE PRN PRN Reason: NAUSEA AND/OR VOMITING Diphenhydramine HCl (Benadryl Injection -) 12.5 mg IVPUSH Q4H PRN PRN Reason: FOR ITCHING Docusate Sodium (Colace -) 100 mg PO TID [facility] Last Admin: 06/07/19 06:46 Dose: 100 mg Enalapril Maleate (Vasotec -) 10 mg PO BID [facility] Last Admin: 06/06/19 22:20 Dose: 10 mg Lactated Ringer's (Lactated Ringers Solution) 1,000 mls @ 75 mls/hr IV ASDIR [facility] Last Admin: 06/06/19 18:38 Dose: Not Given Cefazolin Sodium 1 gm/ (Dextrose) 50 mls @ 100 mls/hr IVPB Q8H-IV [facility] Last Admin: 06/07/19 02:21 Dose: 100 mls/hr Insulin Aspart (Novolog Vial Sliding Scale -) 1 vial SQ ACHS [facility]; Protocol Last Admin: 06/06/19 23:40 Dose: Not Given Ketorolac Tromethamine (Toradol Injection -) 30 mg IVPUSH Q6H PRN PRN Reason: PAIN LEVEL 6-10 Stop: 06/09/19 21:03 Last Admin: 06/06/19 17:31 Dose: 30 mg Metformin HCl (Glucophage -) 1,000 mg PO BIDAC [facility] Last Admin: 06/07/19 06:46 Dose: 1,000 mg Morphine Sulfate (Morphine Geophysical Computer -) 30 mg MEDICAL TECHNOLOGIST CLINICAL MEDICAL TECHNOLOGIST CLINICAL [facility]; Protocol Stop: 06/08/19 20:29 Last Admin: 06/07/19 02:59 Dose: 30 mg Ondansetron HCl (Zofran Injection) 4 mg IVPUSH Q4H PRN PRN Reason: NAUSEA AND/OR VOMITING Last Admin: 06/05/19 11:59 Dose: 4 mg Promethazine HCl (Phenergan Injection -) 12.5 mg IVPB Q6H PRN PRN Reason: NAUSEA AND/OR VOMITING Scopolamine HBr (Transderm-Scop -) 1 patch TD Q72H [facility] Last Admin: 06/05/19 01:10 Dose: 1 patch - Objective Vital Signs: Vital Signs Temperature 98.8 F 06/07/19 07:20 Pulse Rate 82 06/07/19 07:20 Respiratory Rate 20 06/07/19 07:20 Blood Pressure 137/82 06/07/19 07:20 O2 Sat by Pulse Oximetry (%) 99 06/07/19 06:59 Constitutional: Yes: Calm, Mild Distress Cardiovascular: Yes: S1, S2 Respiratory: Yes: Regular, CTA Bilaterally Gastrointestinal: Yes: Normal Bowel Sounds, Soft Musculoskeletal: Yes: WNL Extremities: Yes: WNL Neurological: Yes: Alert, Oriented Psychiatric: Yes: Alert, Oriented Labs: CBC, BMP 06/06/19 07:08 06/06/19 07:08 INR, PTT INR 1.07 (0.83-1.09) 06/01/19 16:49 Assessment/Plan this patient who is post op and now spiking fever and leukocytosis with abd distension and nausea and vomitng patient has got ct of the abd abd distension leukocytosis fever back pain plan continue current abx monitor wbc rest as per the team pain mgmt physio
--- NOTE | 2019-06-07 11:54 | PN ---
Progress Note, Physician Chief Complaint: back pain, nausea, abdominal distention, weakness - Current Medication List Current Medications: Active Medications Acetaminophen (Ofirmev Injection -) 1,000 mg IVPB Q6H PRN PRN Reason: PAIN 1-5 Last Admin: 06/04/19 20:46 Dose: 1,000 mg Amlodipine Besylate (Norvasc -) 10 mg PO HS [facility] Last Admin: 06/06/19 22:20 Dose: 10 mg Dexamethasone Sodium Phosphate (Decadron Injection -) 4 mg IVPUSH ONCE PRN PRN Reason: NAUSEA AND/OR VOMITING Diphenhydramine HCl (Benadryl Injection -) 12.5 mg IVPUSH Q4H PRN PRN Reason: FOR ITCHING Docusate Sodium (Colace -) 100 mg PO TID [facility] Last Admin: 06/07/19 06:46 Dose: 100 mg Enalapril Maleate (Vasotec -) 10 mg PO BID [facility] Last Admin: 06/06/19 22:20 Dose: 10 mg Lactated Ringer's (Lactated Ringers Solution) 1,000 mls @ 75 mls/hr IV ASDIR [facility] Last Admin: 06/06/19 18:38 Dose: Not Given Cefazolin Sodium 1 gm/ (Dextrose) 50 mls @ 100 mls/hr IVPB Q8H-IV [facility] Last Admin: 06/07/19 02:21 Dose: 100 mls/hr Insulin Aspart (Novolog Vial Sliding Scale -) 1 vial SQ ACHS [facility]; Protocol Last Admin: 06/06/19 23:40 Dose: Not Given Ketorolac Tromethamine (Toradol Injection -) 30 mg IVPUSH Q6H PRN PRN Reason: PAIN LEVEL 6-10 Stop: 06/09/19 21:03 Last Admin: 06/06/19 17:31 Dose: 30 mg Metformin HCl (Glucophage -) 1,000 mg PO BIDAC [facility] Last Admin: 06/07/19 06:46 Dose: 1,000 mg Morphine Sulfate (Morphine Manager Recovery -) [address] [facility]; Protocol Stop: 06/08/19 20:29 Last Admin: 06/07/19 02:59 Dose: 30 mg Ondansetron HCl (Zofran Injection) 4 mg IVPUSH Q4H PRN PRN Reason: NAUSEA AND/OR VOMITING Last Admin: 06/05/19 11:59 Dose: 4 mg Promethazine HCl (Phenergan Injection -) 12.5 mg IVPB Q6H PRN PRN Reason: NAUSEA AND/OR VOMITING Scopolamine HBr (Transderm-Scop -) 1 patch TD Q72H [facility] Last Admin: 06/05/19 01:10 Dose: 1 patch - Objective Vital Signs: Vital Signs Temperature 98.8 F 06/07/19 07:20 Pulse Rate 82 06/07/19 07:20 Respiratory Rate 20 06/07/19 07:20 Blood Pressure 137/82 06/07/19 07:20 O2 Sat by Pulse Oximetry (%) 99 06/07/19 06:59 Constitutional: Yes: Well Nourished, No Distress Eyes: Yes: WNL HENT: Yes: WNL Neck: Yes: WNL Cardiovascular: Yes: WNL Respiratory: Yes: WNL Gastrointestinal: Yes: Abdomen, Obese, Hypoactive Bowel Sounds Genitourinary: Yes: Oliguria Musculoskeletal: Yes: Back Pain Extremities: Yes: WNL Edema: No Peripheral Pulses WNL: Yes Integumentary: Yes: WNL Wound/Incision: Yes: Clean/Dry, Well Approximated Neurological: Yes: WNL ...Motor Strength: WNL Psychiatric: Yes: WNL Labs: CBC, BMP 06/06/19 07:08 06/06/19 07:08 INR, PTT INR 1.07 (0.83-1.09) 06/01/19 16:49 Assessment/Plan -54-year-old male s/p: 1. L4 bilateral laminectomies & inferior facetectomies 2. L5 superior facetectomies 2. L4-L5 posterior instrumentation 3. L4-L5 discectomy 4. L4-L5 posterior lumbar interbody fusion 5. L4-L5 insertion biomechanical device 6. L4-L5 posterolateral arthrodesis 7. Bone allograft 8. Bone autograft 9. Bone marrow aspiration & concentrate autograft 10. Complex wound closure (15cm) 11. Durotomy repair denies chest pain, palpitations. diagnosed with fecal retention. SBO ruled out. started on laxatives. + flatus today. oral diet well tolerated today. -GI, DVT prophylaxis. -leucocytosis, reactive thrmbocytosis: with fever. ID eval appreciated. cont IV antibiotics. -failed TOV last night. byrnes reinserted. -HTN: on amlodipine, enalapril -type 2 DM, hyperglycemia: on RISS, metformin -morbid obesity: weight loss and healthier lifestyle advised. -reduced anion gap: from reduced PO protein intake. -assessment and plan discussed at length with pt and at bedside case discussed with Dr Saunders labs and meds reviewed calls answered throughout the day. 35 min
[2019-06-07] MEDS: INSULIN SLIDING SCALE (NOVOLOG) 1 VIAL SQ SCH ×3 (18:05→22:19)
[2019-06-07] MEDS: LACTATED RINGERS SOLUTION 1,000 ML IV SCH (18:07)
[2019-06-07] MEDS: ACETAMINOPHEN 1000 MG/100 ML VIAL (NON FORMULARY) IVPB PRN (21:18)
[2019-06-07] MEDS: amLODIPine BESYLATE 10 MG TABLET (FP) PO SCH (21:20)
[2019-06-07] MEDS: SCOPOLAMINE HYDROBROMIDE 1 PATCH PATCH.TD72 TD SCH (22:51)
[2019-06-08] MEDS ORDERED: ceFAZolin SODIUM 1 GM VIAL ONE ×3 (01:04→17:23)
[2019-06-08] MEDS ORDERED: DEXTROSE 5%-WATER - 50 ML IVPB ONE ×3 (01:04→17:23)
[2019-06-08] MEDS: CEFAZOLIN 1 GM in DEXTROSE 5%-WATER - 50 ML IVPB SCH ×3 (01:28→17:28)
[2019-06-08] MEDS: SCOPOLAMINE HYDROBROMIDE 1 PATCH PATCH.TD72 TD SCH (01:31)
[2019-06-08] MEDS: morphine SULFATE/PF 30 MG/30 ML *PCA* DISP.SYRIN PCA SCH ×2 (02:47→12:33)
[2019-06-08] MEDS: metFORMIN HCL 500 MG TABLET (FP) PO SCH ×2 (06:38→17:29)
[2019-06-08] MEDS: DOCUSATE SODIUM 100 MG CAPSULE (FP) PO SCH ×3 (06:38→22:08)
[2019-06-08 07:19] LABS: BASO % 0.5 % (0-2.0); EOS % 2.2 % (0-4.5); HEMOGLOBIN 11.8 GM/dL (11.7-16.9); LYMPH % 12.1 % (8-40); MCH 29.1 pg (25.7-33.7); MCHC 33.8 g/dl (32.0-35.9); MEAN CELL VOLUME 86.2 fl (80-96); MEAN PLT VOLUME 6.9 fl (7.5-11.1); NEUT % 77.2 % (42.8-82.8); PLATELET COUNT 450 K/MM3 (134-434); RBC 4.06 M/mm3 (4.00-5.60); RDW 12.9 % (11.9-15.9)
[2019-06-08 07:52] LABS: BLOOD UREA NITROGEN 8.2 mg/dL (7-18); CALCIUM 8.9 mg/dL (8.5-10.1); CREATININE 0.7 mg/dL (0.55-1.3); POTASSIUM 4.6 mmol/L (3.5-5.1)
[2019-06-08] MEDS: INSULIN SLIDING SCALE (NOVOLOG) 1 VIAL SQ SCH ×4 (10:20→22:15)
[2019-06-08] MEDS: ACETAMINOPHEN 1000 MG/100 ML VIAL (NON FORMULARY) IVPB PRN ×2 (10:24→19:14)
[2019-06-08] MEDS: ENALAPRIL MALEATE 10 MG TABLET (FP) PO SCH ×2 (10:25→22:08)
[2019-06-08] MEDS ORDERED: BISACODYL 10 MG SUPP.RECT RC ONE (11:00)
[2019-06-08] MEDS: LIDOCAINE HCL 2% JELLY (5 ML/TUBE) TP SCH ×3 (11:21→22:14)
[2019-06-08] MEDS: BACITRACIN 15 GM TUBE TOPICAL OINTMENT TP SCH ×2 (11:21→22:11)
--- NOTE | 2019-06-08 11:58 | PN ---
Progress Note, Physician - Current Medication List Current Medications: Active Medications Acetaminophen (Ofirmev Injection -) 1,000 mg IVPB Q6H PRN PRN Reason: PAIN 1-5 Last Admin: 06/08/19 10:24 Dose: 1,000 mg Amlodipine Besylate (Norvasc -) 10 mg PO HS [facility] Last Admin: 06/07/19 21:20 Dose: 10 mg Bacitracin (Bacitracin -) 1 applic TP BID [facility] Last Admin: 06/08/19 11:21 Dose: 1 applic Dexamethasone Sodium Phosphate (Decadron Injection -) 4 mg IVPUSH ONCE PRN PRN Reason: NAUSEA AND/OR VOMITING Diphenhydramine HCl (Benadryl Injection -) 12.5 mg IVPUSH Q4H PRN PRN Reason: FOR ITCHING Docusate Sodium (Colace -) 100 mg PO TID [facility] Last Admin: 06/08/19 06:38 Dose: 100 mg Enalapril Maleate (Vasotec -) 10 mg PO BID [facility] Last Admin: 06/08/19 10:25 Dose: 10 mg Lactated Ringer's (Lactated Ringers Solution) 1,000 mls @ 75 mls/hr IV ASDIR [facility] Last Admin: 06/07/19 18:07 Dose: Not Given Cefazolin Sodium 1 gm/ (Dextrose) 50 mls @ 100 mls/hr IVPB Q8H-IV [facility] Last Admin: 06/08/19 10:25 Dose: 100 mls/hr Insulin Aspart (Novolog Vial Sliding Scale -) 1 vial SQ ACHS [facility]; Protocol Last Admin: 06/08/19 11:24 Dose: Not Given Ketorolac Tromethamine (Toradol Injection -) 30 mg IVPUSH Q6H PRN PRN Reason: PAIN LEVEL 6-10 Stop: 06/09/19 21:03 Last Admin: 06/06/19 17:31 Dose: 30 mg Lidocaine HCl (Xylocaine 2% Jelly) 1 applic TP TID [facility] Last Admin: 06/08/19 11:21 Dose: 1 applic Metformin HCl (Glucophage -) 1,000 mg PO BIDAC [facility] Last Admin: 06/08/19 06:38 Dose: 1,000 mg Morphine Sulfate (Morphine Funeral Greeter -) 30 mg PETROLEUM REFINING EQUIPMENT OPERATOR PETROLEUM REFINING EQUIPMENT OPERATOR [facility]; Protocol Stop: 06/08/19 20:29 Last Admin: 06/08/19 02:47 Dose: Not Given Ondansetron HCl (Zofran Injection) 4 mg IVPUSH Q4H PRN PRN Reason: NAUSEA AND/OR VOMITING Last Admin: 06/05/19 11:59 Dose: 4 mg Promethazine HCl (Phenergan Injection -) 12.5 mg IVPB Q6H PRN PRN Reason: NAUSEA AND/OR VOMITING Scopolamine HBr (Transderm-Scop -) 1 patch TD Q72H [facility] Last Admin: 06/08/19 01:31 Dose: 1 patch - Objective Vital Signs: Vital Signs Temperature 99.2 F 06/08/19 06:00 Pulse Rate 93 H 06/08/19 09:23 Respiratory Rate 18 06/08/19 09:23 Blood Pressure 158/74 06/08/19 09:23 O2 Sat by Pulse Oximetry (%) 99 06/07/19 21:00 Labs: CBC, BMP 06/08/19 06:30 06/08/19 06:30 INR, PTT INR 1.07 (0.83-1.09) 06/01/19 16:49
[2019-06-08] MEDS: KETOROLAC TROMETHAMINE 30 MG/1 ML VIAL IVPUSH PRN ×2 (12:20→17:29)
[2019-06-08] MEDS: Methylnaltrexone Bromide 12 MG/0.6 ML KIT SQ SCH (15:51)
[2019-06-08] MEDS: LACTATED RINGERS SOLUTION 1,000 ML IV SCH (15:52)
--- NOTE | 2019-06-08 17:32 | PN ---
Progress Note, Physician Chief Complaint: back pain, nausea, constipation, weakness - Current Medication List Current Medications: Active Medications Acetaminophen (Ofirmev Injection -) 1,000 mg IVPB Q6H PRN PRN Reason: PAIN 1-5 Last Admin: 06/08/19 10:24 Dose: 1,000 mg Amlodipine Besylate (Norvasc -) 10 mg PO HS [facility] Last Admin: 06/07/19 21:20 Dose: 10 mg Bacitracin (Bacitracin -) 1 applic TP BID [facility] Last Admin: 06/08/19 11:21 Dose: 1 applic Dexamethasone Sodium Phosphate (Decadron Injection -) 4 mg IVPUSH ONCE PRN PRN Reason: NAUSEA AND/OR VOMITING Diphenhydramine HCl (Benadryl Injection -) 12.5 mg IVPUSH Q4H PRN PRN Reason: FOR ITCHING Docusate Sodium (Colace -) 100 mg PO TID [facility] Last Admin: 06/08/19 14:33 Dose: 100 mg Enalapril Maleate (Vasotec -) 10 mg PO BID [facility] Last Admin: 06/08/19 10:25 Dose: 10 mg Lactated Ringer's (Lactated Ringers Solution) 1,000 mls @ 75 mls/hr IV ASDIR [facility] Last Admin: 06/08/19 15:52 Dose: 75 mls/hr Cefazolin Sodium 1 gm/ (Dextrose) 50 mls @ 100 mls/hr IVPB Q8H-IV [facility] Last Admin: 06/08/19 10:25 Dose: 100 mls/hr Insulin Aspart (Novolog Vial Sliding Scale -) 1 vial SQ [facility]; Protocol Last Admin: 06/08/19 11:24 Dose: Not Given Ketorolac Tromethamine (Toradol Injection -) 30 mg IVPUSH Q6H PRN PRN Reason: PAIN LEVEL 6-10 Stop: 06/09/19 21:03 Last Admin: 06/08/19 12:20 Dose: 30 mg Lidocaine HCl (Xylocaine 2% Jelly) 1 applic TP TID [facility] Last Admin: 06/08/19 14:33 Dose: Not Given Metformin HCl (Glucophage -) 1,000 mg PO BIDAC [facility] Last Admin: 06/08/19 06:38 Dose: 1,000 mg Methylnaltrexone [place] (Relistor -) 12 mg SQ Q2D@1000 [facility] Last Admin: 06/08/19 15:51 Dose: 12 mg Morphine Sulfate (Morphine Senior Analysis Specialist -) 30 mg AUTOMOTIVE MANAGER AUTOMOTIVE MANAGER [facility]; Protocol Stop: 06/08/19 20:29 Last Admin: 06/08/19 12:33 Dose: 30 mg Ondansetron HCl (Zofran Injection) 4 mg IVPUSH Q4H PRN PRN Reason: NAUSEA AND/OR VOMITING Last Admin: 06/05/19 11:59 Dose: 4 mg Promethazine HCl (Phenergan Injection -) 12.5 mg IVPB Q6H PRN PRN Reason: NAUSEA AND/OR VOMITING Scopolamine HBr (Transderm-Scop -) 1 patch TD Q72H [facility] Last Admin: 06/08/19 01:31 Dose: 1 patch - Objective Vital Signs: Vital Signs Temperature 98.8 F 06/08/19 15:49 Pulse Rate 98 H 06/08/19 15:49 Respiratory Rate 18 06/08/19 15:49 Blood Pressure 135/78 06/08/19 15:49 O2 Sat by Pulse Oximetry (%) 98 06/08/19 14:33 Constitutional: Yes: Anxious Eyes: Yes: WNL HENT: Yes: WNL Neck: Yes: WNL Cardiovascular: Yes: WNL, S1, S2 Respiratory: Yes: WNL Gastrointestinal: Yes: Hypoactive Bowel Sounds Genitourinary: Yes: WNL Musculoskeletal: Yes: Back Pain, Joint Stiffness Extremities: Yes: WNL Edema: No Peripheral Pulses WNL: Yes Integumentary: Yes: WNL Wound/Incision: Yes: Clean/Dry, Well Approximated Neurological: Yes: WNL Psychiatric: Yes: WNL Labs: CBC, BMP 06/08/19 06:30 06/08/19 06:30 INR, PTT INR 1.07 (0.83-1.09) 06/01/19 16:49 Assessment/Plan -54-year-old male s/p: 1. L4 bilateral laminectomies & inferior facetectomies 2. L5 superior facetectomies 2. L4-L5 posterior instrumentation 3. L4-L5 discectomy 4. L4-L5 posterior lumbar interbody fusion 5. L4-L5 insertion biomechanical device 6. L4-L5 posterolateral arthrodesis 7. Bone allograft 8. Bone autograft 9. Bone marrow aspiration & concentrate autograft 10. Complex wound closure (15cm) 11. Durotomy repair denies chest pain, palpitations. diagnosed with fecal retention. SBO ruled out. started on aggressive bowel regimen. + flatus but no BM. -GI, DVT prophylaxis. -leucocytosis, reactive thrmbocytosis: with fever. ID eval appreciated. cont IV antibiotics. -failed TOV. byrnes reinserted. will retry tomorrow. -HTN: on amlodipine, enalapril -type 2 DM, hyperglycemia: on RISS, metformin -morbid obesity: weight loss and healthier lifestyle advised. -reduced anion gap: from reduced PO protein intake. -assessment and plan discussed at length with pt and at bedside case discussed with Dr Saunders labs and meds reviewed calls answered throughout the day. 35 min
[2019-06-08] MEDS: amLODIPine BESYLATE 10 MG TABLET (FP) PO SCH (22:08)
[2019-06-09] MEDS: morphine SULFATE/PF 30 MG/30 ML *PCA* DISP.SYRIN PCA SCH (00:19)
[2019-06-09] MEDS ORDERED: ceFAZolin SODIUM 1 GM VIAL ONE ×3 (00:24→17:11)
[2019-06-09] MEDS ORDERED: DEXTROSE 5%-WATER - 50 ML IVPB ONE ×3 (00:24→17:11)
[2019-06-09] MEDS: CEFAZOLIN 1 GM in DEXTROSE 5%-WATER - 50 ML IVPB SCH ×3 (01:33→17:16)
[2019-06-09] MEDS: LACTATED RINGERS SOLUTION 1,000 ML IV SCH ×2 (05:02→17:16)
[2019-06-09] MEDS: DOCUSATE SODIUM 100 MG CAPSULE (FP) PO SCH ×2 (06:09→22:49)
[2019-06-09] MEDS: metFORMIN HCL 500 MG TABLET (FP) PO SCH ×2 (06:09→17:14)
[2019-06-09] MEDS: LIDOCAINE HCL 2% JELLY (5 ML/TUBE) TP SCH ×3 (06:12→23:58)
[2019-06-09] MEDS: INSULIN SLIDING SCALE (NOVOLOG) 1 VIAL SQ SCH ×4 (06:12→23:58)
--- NOTE | 2019-06-09 09:05 | PN ---
Progress Note (short form) - Note Progress Note: 54M s/p L4-L5 PLIF w/posterolateral instrumented arthrodesis POD #7. Pre-operative RLE radiculopathy completely resolved; (+) B/L LE paresthesias. No acute events overnight. Pt. denies overnight history of headaches, chest pain, shortness of breath, chills, & sweats. (+) Nausea, as hasn't moved bowels. (+) Stephens catheter (reinserted after failed TOV 2 days ago); (+) Flatus; (-) BM. Walked with PT; tolerating sitting in chair. All labs and vitals reviewed. PE: AAO x 3, NAD. L-Spine: Dressing C/D/I. B/L LE M: Minimum 3/5; functional weakness d/t recency of surgery. B/L LE S: L2-S1 2/2. 54M s/p L4-L5 PLIF w/posterolateral instrumented arthrodesis POD #7. -Magnesium citrate, Relistor, bowel regimen ordered. -Pain control. -DVT PPx: -Mechanical only: DARCY's, SCD's. -Chemical: None. -Incentive spirometry q15 min. -Diet as tolerated. -Stephens catheter care. -PT/OT/Rehab, OOB. -WBAT B/L LE. -No bending, lifting (>5 lbs), or twisting for 9-12 months. -Care per ICU & medical hospitalist Dr. Bernal. -f/u ID recommendations (Dr. Espinoza). -Discharge planning: [facility]; call for appointment; . -Will follow. Allan Saunders MD (Orthopaedic Surgery).
--- NOTE | 2019-06-09 09:14 | PN ---
Progress Note, Physician - Current Medication List Current Medications: Active Medications Acetaminophen (Ofirmev Injection -) 1,000 mg IVPB Q6H PRN PRN Reason: PAIN 1-5 Last Admin: 06/08/19 19:14 Dose: 1,000 mg Amlodipine Besylate (Norvasc -) 10 mg PO HS [facility] Last Admin: 06/08/19 22:08 Dose: 10 mg Bacitracin (Bacitracin -) 1 applic TP BID [facility] Last Admin: 06/08/19 22:11 Dose: 1 applic Diphenhydramine HCl (Benadryl Injection -) 12.5 mg IVPUSH Q4H PRN PRN Reason: FOR ITCHING Docusate Sodium (Colace -) 300 mg PO HS [facility] Enalapril Maleate (Vasotec -) 10 mg PO BID [facility] Last Admin: 06/08/19 22:08 Dose: 10 mg Lactated Ringer's (Lactated Ringers Solution) 1,000 mls @ 75 mls/hr IV ASDIR [facility] Last Admin: 06/09/19 05:02 Dose: 75 mls/hr Cefazolin Sodium 1 gm/ (Dextrose) 50 mls @ 100 mls/hr IVPB Q8H-IV [facility] Last Admin: 06/09/19 01:33 Dose: 100 mls/hr Insulin Aspart (Novolog Vial Sliding Scale -) 1 vial SQ ACHS [facility]; Protocol Last Admin: 06/09/19 06:12 Dose: Not Given Lidocaine HCl (Xylocaine 2% Jelly) 1 applic TP TID [facility] Last Admin: 06/09/19 06:12 Dose: 1 applic Magnesium Citrate (Citroma -) 300 ml PO DAILY [facility] Stop: 06/11/19 10:01 Metformin HCl (Glucophage -) 1,000 mg PO BIDAC [facility] Last Admin: 06/09/19 06:09 Dose: 1,000 mg Methylnaltrexone [place] (Relistor -) 12 mg SQ Q2D@1000 [facility] Last Admin: 06/08/19 15:51 Dose: 12 mg Morphine Sulfate (Morphine Network Operations Technician -) 30 mg SHORE HAND DREDGE OR BARGE SHORE HAND DREDGE OR BARGE [facility]; Protocol Stop: 06/10/19 20:29 Last Admin: 06/09/19 00:19 Dose: Not Given Ondansetron HCl (Zofran Injection) 4 mg IVPUSH Q4H PRN PRN Reason: NAUSEA AND/OR VOMITING Last Admin: 06/05/19 11:59 Dose: 4 mg Scopolamine HBr (Transderm-Scop -) 1 patch TD Q72H [facility] Last Admin: 06/08/19 01:31 Dose: 1 patch - Objective Vital Signs: Vital Signs Temperature 98.0 F 06/09/19 06:00 Pulse Rate 90 06/09/19 06:32 Respiratory Rate 18 06/09/19 06:32 Blood Pressure 148/89 06/09/19 06:32 O2 Sat by Pulse Oximetry (%) 98 06/09/19 06:32 Labs: CBC, BMP 06/08/19 06:30 06/08/19 06:30 INR, PTT INR 1.07 (0.83-1.09) 06/01/19 16:49
[2019-06-09] MEDS: ENALAPRIL MALEATE 10 MG TABLET (FP) PO SCH ×2 (11:39→22:51)
[2019-06-09] MEDS: MAGNESIUM CITRATE 300 ML BOTTLE PO SCH (11:51)
[2019-06-09] MEDS: ACETAMINOPHEN 1000 MG/100 ML VIAL (NON FORMULARY) IVPB PRN (12:20)
[2019-06-09] MEDS: BACITRACIN 15 GM TUBE TOPICAL OINTMENT TP SCH ×2 (12:21→23:58)
--- NOTE | 2019-06-09 14:06 | PN ---
Progress Note, Physician Chief Complaint: back pain, nausea, constipation, weakness - Current Medication List Current Medications: Active Medications Acetaminophen (Ofirmev Injection -) 1,000 mg IVPB Q6H PRN PRN Reason: PAIN 1-5 Last Admin: 06/09/19 12:20 Dose: 1,000 mg Amlodipine Besylate (Norvasc -) 10 mg PO HS [facility] Last Admin: 06/08/19 22:08 Dose: 10 mg Bacitracin (Bacitracin -) 1 applic TP BID [facility] Last Admin: 06/09/19 12:21 Dose: 1 applic Diphenhydramine HCl (Benadryl Injection -) 12.5 mg IVPUSH Q4H PRN PRN Reason: FOR ITCHING Docusate Sodium (Colace -) 300 mg PO HS [facility] Enalapril Maleate (Vasotec -) 10 mg PO BID [facility] Last Admin: 06/09/19 11:39 Dose: 10 mg Lactated Ringer's (Lactated Ringers Solution) 1,000 mls @ 75 mls/hr IV ASDIR [facility] Last Admin: 06/09/19 05:02 Dose: 75 mls/hr Cefazolin Sodium 1 gm/ (Dextrose) 50 mls @ 100 mls/hr IVPB Q8H-IV [facility] Last Admin: 06/09/19 11:38 Dose: 100 mls/hr Insulin Aspart (Novolog Vial Sliding Scale -) 1 vial SQ ACHS [facility]; Protocol Last Admin: 06/09/19 12:30 Dose: Not Given Lidocaine HCl (Xylocaine 2% Jelly) 1 applic TP TID [facility] Last Admin: 06/09/19 06:12 Dose: 1 applic Magnesium Citrate (Citroma -) 300 ml PO DAILY [facility] Stop: 06/11/19 10:01 Last Admin: 06/09/19 11:51 Dose: Not Given Metformin HCl (Glucophage -) 1,000 mg PO BIDAC [facility] Last Admin: 06/09/19 06:09 Dose: 1,000 mg Methylnaltrexone [place] (Relistor -) 12 mg SQ Q2D@1000 [facility] Last Admin: 06/08/19 15:51 Dose: 12 mg Morphine Sulfate (Morphine Digester Operator -) 30 mg [employer]PERVISOR [employer] SILVER[employer] [facility]; Protocol Stop: 06/10/19 20:29 Last Admin: 06/09/19 00:19 Dose: Not Given Ondansetron HCl (Zofran Injection) 4 mg IVPUSH Q4H PRN PRN Reason: NAUSEA AND/OR VOMITING Last Admin: 06/05/19 11:59 Dose: 4 mg Scopolamine HBr (Transderm-Scop -) 1 patch TD Q72H [facility] Last Admin: 06/08/19 01:31 Dose: 1 patch - Objective Vital Signs: Vital Signs Temperature 99.3 F 06/09/19 10:00 Pulse Rate 97 H 06/09/19 10:00 Respiratory Rate 18 06/09/19 10:00 Blood Pressure 140/80 06/09/19 10:00 O2 Sat by Pulse Oximetry (%) 98 06/09/19 06:32 Constitutional: Yes: Well Nourished, No Distress Eyes: Yes: WNL HENT: Yes: WNL Neck: Yes: WNL Cardiovascular: Yes: WNL Respiratory: Yes: WNL Gastrointestinal: Yes: Soft, Abdomen, Obese, Hypoactive Bowel Sounds ...Rectal Exam: Yes: Deferred Genitourinary: Yes: WNL Musculoskeletal: Yes: Back Pain, Joint Stiffness Extremities: Yes: WNL Edema: No Peripheral Pulses WNL: Yes Integumentary: Yes: WNL Wound/Incision: Yes: Clean/Dry, Well Approximated Neurological: Yes: WNL Psychiatric: Yes: WNL Labs: CBC, BMP 06/08/19 06:30 06/08/19 06:30 INR, PTT INR 1.07 (0.83-1.09) 06/01/19 16:49 Assessment/Plan -54-year-old male s/p: 1. L4 bilateral laminectomies & inferior facetectomies 2. L5 superior facetectomies 2. L4-L5 posterior instrumentation 3. L4-L5 discectomy 4. L4-L5 posterior lumbar interbody fusion 5. L4-L5 insertion biomechanical device 6. L4-L5 posterolateral arthrodesis 7. Bone allograft 8. Bone autograft 9. Bone marrow aspiration & concentrate autograft 10. Complex wound closure (15cm) 11. Durotomy repair denies chest pain, palpitations. diagnosed with fecal retention. SBO ruled out. started on aggressive bowel regimen. + flatus. finally had BM today. -GI, DVT prophylaxis. -leucocytosis, reactive thrmbocytosis: with fever. ID eval appreciated. cont IV antibiotics. -failed TOV. byrnes reinserted. -HTN: on amlodipine, enalapril -type 2 DM, hyperglycemia: on RISS, metformin -morbid obesity: weight loss and healthier lifestyle advised. -reduced anion gap: from reduced PO protein intake. -assessment and plan discussed at length with pt and at bedside . hoping to DC within 48 hours. case discussed with Dr Saunders labs and meds reviewed calls answered throughout the day. 35 min
[2019-06-09] MEDS: ONDANSETRON 4 MG/2 ML VIAL IVPUSH PRN ×2 (15:05→22:54)
[2019-06-09] MEDS: traMADol HCL 50 MG TABLET PO PRN (18:37)
[2019-06-09] MEDS: LACTOBACILLUS ACIDOPHILUS 1 TABLET PO SCH (22:51)
[2019-06-09] MEDS: amLODIPine BESYLATE 10 MG TABLET (FP) PO SCH (22:51)
[2019-06-09 23:48] VITALS: BMI 39.4
[2019-06-10] MEDS ORDERED: ceFAZolin SODIUM 1 GM VIAL ONE ×3 (02:41→17:21)
[2019-06-10] MEDS ORDERED: DEXTROSE 5%-WATER - 50 ML IVPB ONE ×3 (02:41→17:21)
[2019-06-10] MEDS: CEFAZOLIN 1 GM in DEXTROSE 5%-WATER - 50 ML IVPB SCH ×3 (02:44→17:47)
[2019-06-10] MEDS: LIDOCAINE HCL 2% JELLY (5 ML/TUBE) TP SCH ×2 (06:21→15:04)
[2019-06-10] MEDS: LACTOBACILLUS ACIDOPHILUS 1 TABLET PO SCH ×3 (06:21→22:32)
[2019-06-10] MEDS: metFORMIN HCL 500 MG TABLET (FP) PO SCH ×2 (06:21→17:46)
[2019-06-10] MEDS: INSULIN SLIDING SCALE (NOVOLOG) 1 VIAL SQ SCH ×3 (06:22→17:51)
[2019-06-10] MEDS ORDERED: PT OWN MED DRAWER 7, Y5N ONE ×2 (06:31→11:13)
[2019-06-10] MEDS: traMADol HCL 50 MG TABLET PO PRN ×2 (06:43→12:43)
[2019-06-10 07:26] LABS: BASO % 0.4 % (0-2.0); EOS % 1.9 % (0-4.5); HEMATOCRIT 36.1 % (35.4-49); HEMOGLOBIN 11.8 GM/dL (11.7-16.9); MCH 28.4 pg (25.7-33.7); MCHC 32.8 g/dl (32.0-35.9); MEAN CELL VOLUME 86.6 fl (80-96); MEAN PLT VOLUME 7.1 fl (7.5-11.1); NEUT % 78.7 % (42.8-82.8); PLATELET COUNT 502 K/MM3 (134-434); RBC 4.17 M/mm3 (4.00-5.60); WHITE BLOOD COUNT 16.3 K/mm3 (4.0-10.0)
[2019-06-10 07:45] LABS: BLOOD UREA NITROGEN 8.4 mg/dL (7-18); CALCIUM 8.8 mg/dL (8.5-10.1); CREATININE 0.5 mg/dL (0.55-1.3); POTASSIUM 4.4 mmol/L (3.5-5.1)
--- NOTE | 2019-06-10 08:32 | PN ---
Progress Note, Physician History of Present Illness: clinically patient stable wbc has increased - Current Medication List Current Medications: Active Medications Acetaminophen (Ofirmev Injection -) 1,000 mg IVPB Q6H PRN PRN Reason: PAIN 1-5 Last Admin: 06/09/19 12:20 Dose: 1,000 mg Amlodipine Besylate (Norvasc -) 10 mg PO HS [facility] Last Admin: 06/09/19 22:51 Dose: 10 mg Bacitracin (Bacitracin -) 1 applic TP BID [facility] Last Admin: 06/09/19 23:58 Dose: Not Given Diphenhydramine HCl (Benadryl Injection -) 12.5 mg IVPUSH Q4H PRN PRN Reason: FOR ITCHING Docusate Sodium (Colace -) 300 mg PO HS [facility] Last Admin: 06/09/19 22:49 Dose: 300 mg Enalapril Maleate (Vasotec -) 10 mg PO BID [facility] Last Admin: 06/09/19 22:51 Dose: 10 mg Lactated Ringer's (Lactated Ringers Solution) 1,000 mls @ 75 mls/hr IV ASDIR [facility] Last Admin: 06/09/19 17:16 Dose: Not Given Cefazolin Sodium 1 gm/ (Dextrose) 50 mls @ 100 mls/hr IVPB Q8H-IV [facility] Last Admin: 06/10/19 02:44 Dose: 100 mls/hr Insulin Aspart (Novolog Vial Sliding Scale -) 1 vial SQ ACHS [facility]; Protocol Last Admin: 06/10/19 06:22 Dose: Not Given Lactobacillus Acidophilus (Bacid -) 1 tab PO TID [facility] Last Admin: 06/10/19 06:21 Dose: 1 tab Lidocaine HCl (Xylocaine 2% Jelly) 1 applic TP TID [facility] Last Admin: 06/10/19 06:21 Dose: Not Given Magnesium Citrate (Citroma -) 300 ml PO DAILY [facility] Stop: 06/11/19 10:01 Last Admin: 06/09/19 11:51 Dose: Not Given Metformin HCl (Glucophage -) 1,000 mg PO BIDAC [facility] Last Admin: 06/10/19 06:21 Dose: 1,000 mg Methylnaltrexone [place] (Relistor -) 12 mg SQ Q2D@1000 [facility] Last Admin: 06/08/19 15:51 Dose: 12 mg Ondansetron HCl (Zofran Injection) 4 mg IVPUSH Q4H PRN PRN Reason: NAUSEA AND/OR VOMITING Last Admin: 06/09/19 22:54 Dose: 4 mg Scopolamine HBr (Transderm-Scop -) 1 patch TD Q72H [facility] Last Admin: 06/08/19 01:31 Dose: 1 patch Tramadol HCl (Ultram -) 100 mg PO Q6H PRN PRN Reason: PAIN LEVEL 6-10 Last Admin: 06/10/19 06:43 Dose: 100 mg - Objective Vital Signs: Vital Signs Temperature 98.4 F 06/10/19 05:00 Pulse Rate 85 06/10/19 05:00 Respiratory Rate 20 06/10/19 05:00 Blood Pressure 140/77 06/10/19 05:00 O2 Sat by Pulse Oximetry (%) 93 L 06/09/19 21:00 Constitutional: Yes: No Distress, Calm Cardiovascular: Yes: Regular Rate and Rhythm Gastrointestinal: Yes: Normal Bowel Sounds, Soft Genitourinary: Yes: [place] Present Musculoskeletal: Yes: WNL Extremities: Yes: WNL Wound/Incision: Yes: Clean/Dry, Well Approximated Neurological: Yes: Alert, Oriented Psychiatric: Yes: Alert, Oriented Labs: CBC, BMP 06/10/19 05:37 06/10/19 05:37 INR, PTT INR 1.07 (0.83-1.09) 06/01/19 16:49 Assessment/Plan this patient who is post op and now spiking fever and leukocytosis with abd distension and nausea and vomitng patient has got ct of the abd abd distension leukocytosis fever back pain plan continue current abx wbc has jumped up will d/w the team
[2019-06-10 10:32] LABS: PH,URINE 7.5 (5.0-8.0); URINE APPEARANCE CLEAR; URINE BILIRUBIN NEGATIVE (NEGATIVE); URINE COLOR YELLOW; URINE GLUCOSE (UA) NEGATIVE (NEGATIVE); URINE KETONE NEGATIVE (NEGATIVE); URINE LEUK ESTERASE NEGATIVE (NEGATIVE); URINE NITRITE NEGATIVE (NEGATIVE); URINE PROTEIN NEGATIVE (NEGATIVE)
--- NOTE | 2019-06-10 11:18 | PN ---
Progress Note, Physician Chief Complaint: back pain, nausea, constipation, weakness - Current Medication List Current Medications: Active Medications Acetaminophen (Ofirmev Injection -) 1,000 mg IVPB Q6H PRN PRN Reason: PAIN 1-5 Last Admin: 06/09/19 12:20 Dose: 1,000 mg Amlodipine Besylate (Norvasc -) 10 mg PO HS [facility] Last Admin: 06/09/19 22:51 Dose: 10 mg Bacitracin (Bacitracin -) 1 applic TP BID [facility] Last Admin: 06/09/19 23:58 Dose: Not Given Diphenhydramine HCl (Benadryl Injection -) 12.5 mg IVPUSH Q4H PRN PRN Reason: FOR ITCHING Docusate Sodium (Colace -) 300 mg PO HS [facility] Last Admin: 06/09/19 22:49 Dose: 300 mg Enalapril Maleate (Vasotec -) 10 mg PO BID [facility] Last Admin: 06/09/19 22:51 Dose: 10 mg Lactated Ringer's (Lactated Ringers Solution) 1,000 mls @ 75 mls/hr IV ASDIR [facility] Last Admin: 06/09/19 17:16 Dose: Not Given Cefazolin Sodium 1 gm/ (Dextrose) 50 mls @ 100 mls/hr IVPB Q8H-IV [facility] Last Admin: 06/10/19 02:44 Dose: 100 mls/hr Insulin Aspart (Novolog Vial Sliding Scale -) 1 vial SQ ACHS [facility]; Protocol Last Admin: 06/10/19 06:22 Dose: Not Given Lactobacillus Acidophilus (Bacid -) 1 tab PO TID [facility] Last Admin: 06/10/19 06:21 Dose: 1 tab Lidocaine HCl (Xylocaine 2% Jelly) 1 applic TP TID [facility] Last Admin: 06/10/19 06:21 Dose: Not Given Magnesium Citrate (Citroma -) 300 ml PO DAILY [facility] Stop: 06/11/19 10:01 Last Admin: 06/09/19 11:51 Dose: Not Given Metformin HCl (Glucophage -) 1,000 mg PO BIDAC [facility] Last Admin: 06/10/19 06:21 Dose: 1,000 mg Methylnaltrexone [place] (Relistor -) 12 mg SQ Q2D@1000 [facility] Last Admin: 06/08/19 15:51 Dose: 12 mg Ondansetron HCl (Zofran Injection) 4 mg IVPUSH Q4H PRN PRN Reason: NAUSEA AND/OR VOMITING Last Admin: 06/09/19 22:54 Dose: 4 mg Scopolamine HBr (Transderm-Scop -) 1 patch TD Q72H [facility] Last Admin: 06/08/19 01:31 Dose: 1 patch Tramadol HCl (Ultram -) 100 mg PO Q6H PRN PRN Reason: PAIN LEVEL 6-10 Last Admin: 06/10/19 06:43 Dose: 100 mg - Objective Vital Signs: Vital Signs Temperature 98.4 F 06/10/19 05:00 Pulse Rate 85 06/10/19 05:00 Respiratory Rate 20 06/10/19 05:00 Blood Pressure 140/77 06/10/19 05:00 O2 Sat by Pulse Oximetry (%) 93 L 06/09/19 21:00 Constitutional: Yes: Well Nourished, No Distress Eyes: Yes: WNL HENT: Yes: WNL Neck: Yes: WNL Cardiovascular: Yes: WNL Respiratory: Yes: WNL Gastrointestinal: Yes: Abdomen, Obese, Hypoactive Bowel Sounds Genitourinary: Yes: [place] Present Musculoskeletal: Yes: Back Pain Extremities: Yes: WNL Edema: No Peripheral Pulses WNL: Yes Integumentary: Yes: WNL Wound/Incision: Yes: Clean/Dry, Well Approximated Neurological: Yes: WNL ...Motor Strength: WNL Psychiatric: Yes: WNL Labs: CBC, BMP 06/10/19 05:37 06/10/19 05:37 INR, PTT INR 1.07 (0.83-1.09) 06/01/19 16:49 Assessment/Plan -54-year-old male s/p: 1. L4 bilateral laminectomies & inferior facetectomies 2. L5 superior facetectomies 2. L4-L5 posterior instrumentation 3. L4-L5 discectomy 4. L4-L5 posterior lumbar interbody fusion 5. L4-L5 insertion biomechanical device 6. L4-L5 posterolateral arthrodesis 7. Bone allograft 8. Bone autograft 9. Bone marrow aspiration & concentrate autograft 10. Complex wound closure (15cm) 11. Durotomy repair denies chest pain, palpitations. diagnosed with fecal retention. resolved. oral diet well tolerated today. -GI, DVT prophylaxis. -leucocytosis, reactive thrmbocytosis: . ID eval appreciated. will check UA, urine cultures. WBC rising. -DC byrnes. for TOV today. -HTN: on amlodipine, enalapril -type 2 DM, hyperglycemia: on RISS, metformin -morbid obesity: weight loss and healthier lifestyle advised. -assessment and plan discussed at length with pt and at bedside . hoping to DC within 48 hours. case discussed with Dr Saunders labs and meds reviewed calls answered throughout the day. 35 min
[2019-06-10] MEDS: BACITRACIN 15 GM TUBE TOPICAL OINTMENT TP SCH ×2 (11:22→22:32)
[2019-06-10] MEDS: Methylnaltrexone Bromide 12 MG/0.6 ML KIT SQ SCH (11:23)
[2019-06-10] MEDS: MAGNESIUM CITRATE 300 ML BOTTLE PO SCH (11:23)
[2019-06-10] MEDS: ENALAPRIL MALEATE 10 MG TABLET (FP) PO SCH ×2 (11:24→22:32)
[2019-06-10] MEDS: TAMSULOSIN HCL 0.4 MG CAP PO SCH (15:06)
--- NOTE | 2019-06-10 20:35 | PN ---
Progress Note (short form) - Note Progress Note: Doing well Wound dry Neuro At baseline ASSESS No complications and ambulating well PLAN D/C home tomorrow See in office 10 rays
[2019-06-10] MEDS: DOCUSATE SODIUM 100 MG CAPSULE (FP) PO SCH (22:32)
[2019-06-10] MEDS: amLODIPine BESYLATE 10 MG TABLET (FP) PO SCH (22:32)
[2019-06-11] MEDS ORDERED: ceFAZolin SODIUM 1 GM VIAL ONE ×2 (02:41→09:50)
[2019-06-11] MEDS ORDERED: DEXTROSE 5%-WATER - 50 ML IVPB ONE ×2 (02:41→09:50)
[2019-06-11] MEDS: CEFAZOLIN 1 GM in DEXTROSE 5%-WATER - 50 ML IVPB SCH ×2 (02:48→09:52)
[2019-06-11] MEDS: SCOPOLAMINE HYDROBROMIDE 1 PATCH PATCH.TD72 TD SCH (02:50)
[2019-06-11] MEDS: INSULIN SLIDING SCALE (NOVOLOG) 1 VIAL SQ SCH ×3 (06:26→17:21)
[2019-06-11] MEDS: metFORMIN HCL 500 MG TABLET (FP) PO SCH ×2 (06:26→17:15)
[2019-06-11] MEDS: LACTOBACILLUS ACIDOPHILUS 1 TABLET PO SCH ×3 (06:26→21:20)
--- NOTE | 2019-06-11 08:25 | PN ---
Progress Note, Physician History of Present Illness: stable doing well clinically - Current Medication List Current Medications: Active Medications Acetaminophen (Ofirmev Injection -) 1,000 mg IVPB Q6H PRN PRN Reason: PAIN 1-5 Last Admin: 06/09/19 12:20 Dose: 1,000 mg Amlodipine Besylate (Norvasc -) 10 mg PO HS [facility] Last Admin: 06/10/19 22:32 Dose: Not Given Bacitracin (Bacitracin -) 1 applic TP BID [facility] Last Admin: 06/10/19 22:32 Dose: Not Given Diphenhydramine HCl (Benadryl Injection -) 12.5 mg IVPUSH Q4H PRN PRN Reason: FOR ITCHING Docusate Sodium (Colace -) 300 mg PO [facility] Last Admin: 06/10/19 22:32 Dose: Not Given Enalapril Maleate (Vasotec -) 10 mg PO BID [facility] Last Admin: 06/10/19 22:32 Dose: Not Given Cefazolin Sodium 1 gm/ (Dextrose) 50 mls @ 100 mls/hr IVPB Q8H-IV [facility] Last Admin: 06/11/19 02:48 Dose: 100 mls/hr Insulin Aspart (Novolog Vial Sliding Scale -) 1 vial SQ BIDAC [facility]; Protocol Last Admin: 06/11/19 06:26 Dose: Not Given Lactobacillus Acidophilus (Bacid -) 1 tab PO TID [facility] Last Admin: 06/11/19 06:26 Dose: 1 tab Magnesium Citrate (Citroma -) 300 ml PO DAILY [facility] Stop: 06/11/19 10:01 Last Admin: 06/10/19 11:23 Dose: 300 ml Metformin HCl (Glucophage -) 1,000 mg PO BIDAC [facility] Last Admin: 06/11/19 06:26 Dose: 1,000 mg Methylnaltrexone [place] (Relistor -) 12 mg SQ Q2D@1000 [facility] Last Admin: 06/10/19 11:23 Dose: 12 mg Ondansetron HCl (Zofran Injection) 4 mg IVPUSH Q4H PRN PRN Reason: NAUSEA AND/OR VOMITING Last Admin: 06/09/19 22:54 Dose: 4 mg Scopolamine HBr (Transderm-Scop -) 1 patch TD Q72H [facility] Last Admin: 06/11/19 02:50 Dose: 1 patch Tamsulosin HCl (Flomax -) 0.4 mg PO DAILY@0830 [facility] Last Admin: 06/10/19 15:06 Dose: 0.4 mg Tramadol HCl (Ultram -) 100 mg PO Q6H PRN PRN Reason: PAIN LEVEL 6-10 Last Admin: 06/10/19 12:43 Dose: 100 mg - Objective Vital Signs: Vital Signs Temperature 98.7 F 06/11/19 05:00 Pulse Rate 81 06/11/19 05:00 Respiratory Rate 20 06/11/19 05:00 Blood Pressure 147/83 06/11/19 05:00 O2 Sat by Pulse Oximetry (%) 96 06/10/19 21:00 Constitutional: Yes: No Distress, Calm Cardiovascular: Yes: Regular Rate and Rhythm Respiratory: Yes: Regular, CTA Bilaterally Gastrointestinal: Yes: Normal Bowel Sounds, Soft Musculoskeletal: Yes: WNL Extremities: Yes: WNL Wound/Incision: Yes: Dressing Dry and Intact Neurological: Yes: Alert, Oriented Psychiatric: Yes: Alert, Oriented Labs: CBC, BMP 06/10/19 05:37 06/10/19 05:37 INR, PTT INR 1.07 (0.83-1.09) 06/01/19 16:49 Assessment/Plan this patient who is post op and now spiking fever and leukocytosis with abd distension and nausea and vomitng patient has got ct of the abd abd distension leukocytosis fever back pain plan continue current abx will check wbc this morning if trending down will switch to oral abx wound description noted rest as per the team
[2019-06-11] MEDS: MAGNESIUM CITRATE 300 ML BOTTLE PO SCH (09:47)
[2019-06-11] MEDS ORDERED: PT OWN MED DRAWER 7, Y5N ONE (09:50)
[2019-06-11 09:52] LABS: HEMATOCRIT 39.2 % (35.4-49); HEMOGLOBIN 13.1 GM/dL (11.7-16.9); MCH 28.6 pg (25.7-33.7); MCHC 33.3 g/dl (32.0-35.9); MEAN CELL VOLUME 85.8 fl (80-96); MEAN PLT VOLUME 6.6 fl (7.5-11.1); PLATELET COUNT 621 K/MM3 (134-434); RBC 4.57 M/mm3 (4.00-5.60); RDW 13.2 % (11.9-15.9); WHITE BLOOD COUNT 19.2 K/mm3 (4.0-10.0)
[2019-06-11] MEDS: ENALAPRIL MALEATE 10 MG TABLET (FP) PO SCH ×2 (09:52→21:20)
[2019-06-11] MEDS: TAMSULOSIN HCL 0.4 MG CAP PO SCH (09:52)
[2019-06-11] MEDS: BACITRACIN 15 GM TUBE TOPICAL OINTMENT TP SCH ×2 (09:53→21:20)
[2019-06-11] MEDS: traMADol HCL 50 MG TABLET PO PRN (09:58)
[2019-06-11] MEDS ORDERED: CEFEPIME HCL 1 GM VIAL (RESTRICTED TO ID) ONE (17:04)
[2019-06-11] MEDS ORDERED: DEXTROSE 5%-WATER 100 ML IVPB ONE (17:05)
[2019-06-11] MEDS ORDERED: INSULIN (NOVOLOG) ASPART 100 UNITS/ML 10ML VIAL ONE (17:10)
[2019-06-11] MEDS: CEFEPIME 1 GM in DEXTROSE 5%-WATER 100 ML IVPB SCH (17:16)
--- NOTE | 2019-06-11 17:50 | PN ---
Progress Note (short form) - Note Progress Note: 54M s/p L4-L5 PLIF w/posterolateral instrumented arthrodesis POD #9. No acute events overnight. Pt. denies overnight history of headaches, chest pain, shortness of breath, nausea, vomiting, chills, & sweats. (+) Voiding; (+) Flatus; (+) BM. Walked unassisted in hallway today. All labs and vitals reviewed. (+) Leukocytosis and thrombocytosis; pt. reports chronic history of untreated leukocytosis. PE: AAO x 3, NAD. L-Spine: Dressing C/D/I. B/L LE M: Minimum 4/5; functional weakness d/t recency of surgery. B/L LE S: L2-S1 2/2. 54M s/p L4-L5 PLIF w/posterolateral instrumented arthrodesis POD #9. -Pain control. -DVT PPx: -Mechanical only: DARCY's, SCD's. -Chemical: None. -Incentive spirometry q15 min. -Diet as tolerated. -PT/OT/Rehab, OOB. -WBAT B/L LE. -No bending, lifting (>5 lbs), or twisting for 9-12 months. -Care per medical hospitalist Dr. Bernal. -f/u ID recommendations (Dr. Espinoza) & hematology team recommendations. -Discharge planning: f/u 7-10 days after discharge at [facility] office; call for appointment; . -Will follow. Allan Saunders MD (Orthopaedic Surgery).
--- NOTE | 2019-06-11 19:18 | PN ---
Progress Note, Physician Chief Complaint: back pain, nausea, constipation, weakness - Current Medication List Current Medications: Active Medications Acetaminophen (Ofirmev Injection -) 1,000 mg IVPB Q6H PRN PRN Reason: PAIN 1-5 Last Admin: 06/09/19 12:20 Dose: 1,000 mg Amlodipine Besylate (Norvasc -) 10 mg PO [facility] Last Admin: 06/10/19 22:32 Dose: Not Given Bacitracin (Bacitracin -) 1 applic TP BID [facility] Last Admin: 06/11/19 09:53 Dose: 1 applic Diphenhydramine HCl (Benadryl Injection -) 12.5 mg IVPUSH Q4H PRN PRN Reason: FOR ITCHING Docusate Sodium (Colace -) 300 mg PO [facility] Last Admin: 06/10/19 22:32 Dose: Not Given Enalapril Maleate (Vasotec -) 10 mg PO BID [facility] Last Admin: 06/11/19 09:52 Dose: 10 mg Cefepime HCl 1 gm/ Dextrose 100 mls @ 200 mls/hr IVPB Q8H-IV [facility] Last Admin: 06/11/19 17:16 Dose: 200 mls/hr Insulin Aspart (Novolog Vial Sliding Scale -) 1 vial SQ BIDAC [facility]; Protocol Last Admin: 06/11/19 17:21 Dose: Not Given Lactobacillus Acidophilus (Bacid -) 1 tab PO TID [facility] Last Admin: 06/11/19 14:44 Dose: 1 tab Metformin HCl (Glucophage -) 1,000 mg PO BIDAC [facility] Last Admin: 06/11/19 17:15 Dose: 1,000 mg Methylnaltrexone [place] (Relistor -) 12 mg SQ Q2D@1000 [facility] Last Admin: 06/10/19 11:23 Dose: 12 mg Ondansetron HCl (Zofran Injection) 4 mg IVPUSH Q4H PRN PRN Reason: NAUSEA AND/OR VOMITING Last Admin: 06/09/19 22:54 Dose: 4 mg Scopolamine HBr (Transderm-Scop -) 1 patch TD Q72H [facility] Last Admin: 06/11/19 02:50 Dose: 1 patch Tamsulosin HCl (Flomax -) 0.4 mg PO DAILY@0830 [facility] Last Admin: 06/11/19 09:52 Dose: 0.4 mg Tramadol HCl (Ultram -) 100 mg PO Q6H PRN PRN Reason: PAIN LEVEL 6-10 Last Admin: 06/11/19 09:58 Dose: 100 mg - Objective Vital Signs: Vital Signs Temperature 98.5 F 06/11/19 17:17 Pulse Rate 95 H 06/11/19 17:17 Respiratory Rate 20 06/11/19 17:17 Blood Pressure 139/73 06/11/19 17:17 O2 Sat by Pulse Oximetry (%) 94 L 06/11/19 09:00 Constitutional: Yes: Well Nourished, No Distress, Calm Eyes: Yes: WNL HENT: Yes: WNL Neck: Yes: WNL Cardiovascular: Yes: WNL Respiratory: Yes: WNL Gastrointestinal: Yes: WNL ...Rectal Exam: Yes: WNL Genitourinary: Yes: WNL Musculoskeletal: Yes: Back Pain Extremities: Yes: WNL Edema: No Peripheral Pulses WNL: Yes Integumentary: Yes: WNL Wound/Incision: Yes: Clean/Dry, Well Approximated Neurological: Yes: WNL ...Motor Strength: WNL Psychiatric: Yes: WNL Labs: CBC, BMP 06/11/19 09:20 06/10/19 05:37 INR, PTT INR 1.07 (0.83-1.09) 06/01/19 16:49 Assessment/Plan -54-year-old male s/p: 1. L4 bilateral laminectomies & inferior facetectomies 2. L5 superior facetectomies 2. L4-L5 posterior instrumentation 3. L4-L5 discectomy 4. L4-L5 posterior lumbar interbody fusion 5. L4-L5 insertion biomechanical device 6. L4-L5 posterolateral arthrodesis 7. Bone allograft 8. Bone autograft 9. Bone marrow aspiration & concentrate autograft 10. Complex wound closure (15cm) 11. Durotomy repair denies chest pain, palpitations. diagnosed with fecal retention. resolved. oral diet well tolerated. -GI, DVT prophylaxis. -leucocytosis, reactive thrmbocytosis: . ID eval appreciated. treated with IV antibiotics. hematology eval requested as WBC remains elevated S/P IV antibiotics. Pt says he has had elevated WBC for years but never pursued hematology workup. -DC byrnes. TOV successful. -HTN: on amlodipine, enalapril -type 2 DM, hyperglycemia: on RISS, metformin -morbid obesity: weight loss and healthier lifestyle advised. -assessment and plan discussed at length with pt and at bedside . hoping to DC in AM case discussed with Dr Saunders labs and meds reviewed calls answered throughout the day. 35 min
--- NOTE | 2019-06-11 20:20 | CONSULT ---
Consult - text type - Consultation Consultation Note: 54yo M with PMH of obesity NIDDM, HTN presented to ED with complaints of worsening lower back pain.Patient states that he has had back pain for the past 8m or so but for the past few months it has been getting worse. He endorses electric like pain shooting down his R leg associated with paresthesia in the R foot and difficulty walking. He has pain whether he is sitting, standing or walking but feels as if his R leg is weaker now. He was seen at [facility] for the back pain and MRI done 05/07/19 showed moderate stenosis at the L4/L5 outlet due to disc bulge. He is post op. s/p L4-5 facetectomies, discectomy We have been consulted for chronic leukocytosis PMH: see hpi PSH: none Meds: see med rec Allergies: PCN, Bactrim Past History - Past Medical History Allergies/Adverse Reactions: Allergies Allergy/AdvReac Type Severity Reaction Status Date / Time Penicillins Allergy Verified 06/01/19 12:51 sulfamethoxazole Allergy Verified 06/01/19 12:51 [From Bactrim] trimethoprim [From Bactrim] Allergy Verified 06/01/19 12:51 Home Medications: Ambulatory Orders Amlodipine Besylate 10 mg PO HS 06/01/19 Enalapril Maleate [Vasotec -] 10 mg PO BID 06/01/19 Enalapril Maleate [Vasotec] 10 mg PO 06/01/19 Gabapentin 800 mg PO TID 06/01/19 Metformin HCl [Glucophage] 1,000 mg PO BID 06/01/19 Oxycodone HCl 5 mg PO TID PRN 06/01/19 Tramadol HCl 100 mg PO TID 06/01/19 PMH obesity Diabetes: Yes (NIDDM) HTN: Yes Other medical history: chronic back pain - Suicide/Smoking/Psychosocial Hx Smoking History: Never smoked - Vital Signs AFVSS Cor: RSR, No murmurs, No gallops Lungs: Clear to P&A Abd: Soft, Normal bowel sounds, No organomegaly Ext:No significant edema Labs/Meds reviewed A/P 54yo M with PMH of obesity NIDDM, HTN presented to ED with complaints of worsening lower back pain.Patient states that he has had back pain for the past 8m or so but for the past few months it has been getting worse. He endorses electric like pain shooting down his R leg associated with paresthesia in the R foot and difficulty walking. He has pain whether he is sitting, standing or walking but feels as if his R leg is weaker now. He was seen at [facility] for the back pain and MRI done 05/07/19 showed moderate stenosis at the L4/L5 outlet due to disc bulge. He is post op. s/p L4-5 facetectomies, discectomy We have been consulted for chronic leukocytosis Leukocytosis for several yrs. . No acute signs/symptoms of infection Differential--neutrophilia Suspect due to obesity will check bcr;abl/ JAK2/flow Will need outpatient follow up --- to f/u on results and further w/u as needed discussed with patient
[2019-06-11] MEDS: amLODIPine BESYLATE 10 MG TABLET (FP) PO SCH (21:20)
[2019-06-11] MEDS: DOCUSATE SODIUM 100 MG CAPSULE (FP) PO SCH (21:20)
[2019-06-12] MEDS ORDERED: CEFEPIME HCL 1 GM VIAL (RESTRICTED TO ID) ONE ×2 (01:04→09:37)
[2019-06-12] MEDS ORDERED: DEXTROSE 5%-WATER 100 ML IVPB ONE ×2 (01:05→09:37)
[2019-06-12] MEDS: CEFEPIME 1 GM in DEXTROSE 5%-WATER 100 ML IVPB SCH ×2 (01:18→09:59)
[2019-06-12] MEDS: metFORMIN HCL 500 MG TABLET (FP) PO SCH (06:06)
[2019-06-12] MEDS: LACTOBACILLUS ACIDOPHILUS 1 TABLET PO SCH (06:06)
[2019-06-12] MEDS: INSULIN SLIDING SCALE (NOVOLOG) 1 VIAL SQ SCH (06:06)
[2019-06-12] MEDS: traMADol HCL 50 MG TABLET PO PRN (08:30)
[2019-06-12] MEDS ORDERED: PT OWN MED DRAWER 7, Y5N ONE (09:37)
[2019-06-12] MEDS: ENALAPRIL MALEATE 10 MG TABLET (FP) PO SCH (09:56)
[2019-06-12] MEDS: TAMSULOSIN HCL 0.4 MG CAP PO SCH (09:56)
[2019-06-12] MEDS: BACITRACIN 15 GM TUBE TOPICAL OINTMENT TP SCH (09:59)
[2019-06-12] MEDS: Methylnaltrexone Bromide 12 MG/0.6 ML KIT SQ SCH (10:01)
--- NOTE | 2019-06-12 11:12 | DS ---
Physical Examination Vital Signs: Vital Signs Temperature 98.5 F 06/12/19 07:01 Pulse Rate 87 06/12/19 07:01 Respiratory Rate 20 06/12/19 07:01 Blood Pressure 134/77 06/12/19 07:01 O2 Sat by Pulse Oximetry (%) 94 L 06/11/19 21:00 Labs: CBC, BMP 06/11/19 09:20 06/10/19 05:37 Discharge Summary Reason For Visit: LWR BACK PAIN Current Active Problems Low back pain (Acute) Hospital Course: 54-year-old male s/p: 1. L4 bilateral laminectomies & inferior facetectomies 2. L5 superior facetectomies 2. L4-L5 posterior instrumentation 3. L4-L5 discectomy 4. L4-L5 posterior lumbar interbody fusion 5. L4-L5 insertion biomechanical device 6. L4-L5 posterolateral arthrodesis 7. Bone allograft 8. Bone autograft 9. Bone marrow aspiration & concentrate autograft 10. Complex wound closure (15cm) 11. Durotomy repair denies chest pain, palpitations. diagnosed with fecal retention. resolved. oral diet well tolerated. -GI, DVT prophylaxis. -leucocytosis, reactive thrmbocytosis: . ID eval appreciated. treated with IV antibiotics. hematology eval requested as WBC remains elevated S/P IV antibiotics. Pt says he has had elevated WBC for years but never pursued hematology workup. will f/u with them outpatient -[facility] byrnes. CORTES successful. -HTN: on amlodipine, enalapril -type 2 DM, hyperglycemia: on RISS, metformin -morbid obesity: weight loss and healthier lifestyle advised. -assessment and plan discussed at length with pt and at bedside . Condition: Good - Instructions Disposition: HOME - Home Medications Comprehensive Discharge Medication List: Ambulatory Orders Amlodipine Besylate 10 mg PO HS 06/01/19 Enalapril Maleate [Vasotec -] 10 mg PO BID 06/01/19 Enalapril Maleate [Vasotec] 10 mg PO 06/01/19 Gabapentin 800 mg PO TID 06/01/19 Metformin HCl [Glucophage] 1,000 mg PO BID 06/01/19 Oxycodone HCl 5 mg PO TID PRN 06/01/19 Tramadol HCl 100 mg PO TID 06/01/19
[2019-06-12 11:44] VITALS: BP 121/75; PULSE 90; TEMP 98.1
== END 2019-06-12 13:54 | disposition home or self-care (01) | DRG 454 ==
LOC: JER 12:46 → JERBED 16:30 → J8W 17:55 → JICU 06-02 22:54 → J8W 06-03 15:38
PROVIDERS: ADMIT Orthopaedic Surgery Adult Reconstructive Orthopaedic Surgery; ATTEND Orthopaedic Surgery Adult Reconstructive Orthopaedic Surgery
PROC: 0SG0071 Fusion of Lumbar Vertebral Joint with Autologous Tissue Substitute, Posterior Approach, Posterior Column, Open Approach (ICD-10-PCS; 2019-06-02)
PROC: 0SB20ZZ Excision of Lumbar Vertebral Disc, Open Approach (ICD-10-PCS; 2019-06-02)
PROC: 01NB0ZZ Release Lumbar Nerve, Open Approach (ICD-10-PCS; 2019-06-02)
PROC: 00QT0ZZ Repair Spinal Meninges, Open Approach (ICD-10-PCS; 2019-06-02)
PROC: 07DR0ZZ Extraction of Iliac Bone Marrow, Open Approach (ICD-10-PCS; 2019-06-02)
PROC: B01BZZZ Fluoroscopy of Spinal Cord (ICD-10-PCS; 2019-06-02)
PROC: 0SG00AJ Fusion of Lumbar Vertebral Joint with Interbody Fusion Device, Posterior Approach, Anterior Column, Open Approach (ICD-10-PCS; principal; 2019-06-02 12:00)
DX: M51.16 Intervertebral disc disorders with radiculopathy, lumbar region (principal); G96.11 Dural tear; M48.062 Spinal stenosis, lumbar region with neurogenic claudication; M53.2X6 Spinal instabilities, lumbar region; I10 Essential (primary) hypertension; M54.89 Other dorsalgia; E66.9 Obesity, unspecified; Z68.39 Body mass index [BMI] 39.0-39.9, adult; E11.65 Type 2 diabetes mellitus with hyperglycemia; D47.3 Essential (hemorrhagic) thrombocythemia; D72.828 Other elevated white blood cell count; R50.9 Fever, unspecified; R14.0 Abdominal distension (gaseous); K59.09 Other constipation
CPT/HCPCS: 36415; 71045-TC-FY; 74176-TC; 76000-TC-FY; 80048; 80053; 81003; 82962; 84443; 85025; 85027; 85610; 85730; 86850; 86900; 86901; 87077; 87086; 88304-TC; 93005; 93010; 94010; 94760; 97116-GP; 97162-GP; 99283-25; J0131; J1644